=== PATIENT | female | born 1950 | race Caucasian/White ===

== ENCOUNTER 2016-11-09 07:54 | Day surgery (SDC) | payer MEDICARE ==
--- NOTE | 2016-11-08 00:03 | HP ---
HISTORY AND PHYSICAL: DATE OF ADMISSION: 11/09/16 ADMITTING DIAGNOSES: 1. Left hydronephrosis. 2. Left ureteropelvic junction calculus. 3. Left renal calculus. PLANNED PROCEDURE: Left stent insertion (to be followed in the near future by lithotripsy). SURGEON: Dr. Boyce. ADMITTING HISTORY AND PHYSICAL: Robb Kenyon is a 66-year-old lady with a history of recurrent renal calculi. She was recently evaluated for left flank pain and was noted to have left hydronephrosis secondary to a 6-mm calculus at the left ureteropelvic junction. In addition, she has a 9-mm calculus in the left kidney. The plan is for left stent insertion to be followed in the near future by lithotripsy. Her urinalysis when seen on November 07 was suspicious for urinary tract infection and she was started on antibiotics and urine culture is pending at the time of this dictation. PAST MEDICAL HISTORY: Significant for: 1. Renal calculi. 2. Hypertension. 3. Postherpetic neuralgia. MEDICATIONS: On admission: 1. Hydrochlorothiazide 25 mg a day. 2. Atenolol 12.5 mg a day. 3. Lyrica 100 mg 2 tablets daily. 4. Duloxetine 60 mg a day. ALLERGIES: AMPICILLIN (hives), OXCARBAZEPINE (skin rash), CODEINE (vomiting). PHYSICAL EXAMINATION GENERAL: Reveals a pleasant, middle-aged lady. VITAL SIGNS: Blood pressure is 112/78, pulse 70 per minute, temperature 98.5, oxygen saturation 97%. LUNGS: Clear bilaterally. CARDIOVASCULAR: Regular rate and rhythm. S1, S2. ABDOMEN: Soft with mild left flank tenderness. IMPRESSION: A 66-year-old lady with left ureteropelvic junction calculus with mild left hydronephrosis and a possible associated urinary tract infection, who has been started on antibiotics and is now being brought in for left stent insertion to be followed at some point in the near future by lithotripsy. CC: Dr. Margarito Martin; Dr. Boyce * [id number]/[facility] #: [id number] MTDD
[~2016-11-09 07:54] MED LIST: Buffered Lidocaine 1% SYR 3ML* 3 ML/SYR SYRINGE INTRADERM ONE; Famotidine IV* 10 MG/ML 2 ML (20 mg) IV ONE; Famotidine IV* 10 MG/ML 2 ML (20 mg) ONE; Gentamicin ADULT (*) 180 MG in NS 0.9% 100 ML* 100 ML IVPB ONE; Iohexol 180 (CONTRAST) 10 ML SDV IV ONE; cefTRIAXone(*) 2 GM ADDV.VIAL IVPB ONE
[2016-11-09] MEDS ORDERED: cefTRIAXone(*) 2 GM ADDV.VIAL IVPB ONE (07:59)
[2016-11-09] MEDS ORDERED: Famotidine IV* 10 MG/ML 2 ML (20 mg) ONE (07:59)
[2016-11-09] MEDS ORDERED: Midazolam* 1 MG/ML 5 ML VIAL (5 MG) ONE (08:07)
[2016-11-09] MEDS ORDERED: fentaNYL* 50 MCG/ML 2 ML VIAL (100 MCG VIAL) ONE (08:07)
[2016-11-09] MEDS ORDERED: Ondansetron INJ* 2 MG/ML VIAL ONE (08:08)
[2016-11-09] MEDS ORDERED: Propofol* 10 MG/ML 20 ML BTL IV PUSH ONE (08:08)
[2016-11-09] MEDS ORDERED: Lidocaine 2% PF * 5 ML VIAL ONE (08:08)
[2016-11-09] MEDS ORDERED: Ketorolac INJ* 30 MG/ML 1 ML VIAL ONE (08:08)
[2016-11-09] MEDS ORDERED: Acetaminophen TAB* 325 MG PO PRN (08:29)
[2016-11-09] MEDS ORDERED: DiMENhydriNATE IV* 50 MG/ML VIAL IV PUSH PRN (08:29)
[2016-11-09] MEDS ORDERED: Chloroprocaine 2%* 20 ML VIAL ONE (08:45)
--- NOTE | 2016-11-09 09:50 | RAD ---
INDICATION: Left-sided hydronephrosis, left ureteral stent insertion COMPARISONS: KUB dated November 07, 2016 TECHNIQUE: Fluoroscopy was provided for a retrograde pyelogram and stent placement. Total fluoroscopy time is: 10 seconds FINDINGS: Spot images demonstrate contrast within the renal collecting system. A ureteral stent is noted IMPRESSION: FLUOROSCOPY WAS PROVIDED FOR A RETROGRADE PYELOGRAM AND STENT PLACEMENT CPT II Codes: 6045F
[2016-11-09] MEDS ORDERED: Iohexol 180 (CONTRAST) 10 ML SDV IV ONE (09:55)
[2016-11-09 10:15] VITALS: BP 126/77
--- NOTE | 2016-11-10 03:05 | OP ---
DATE OF OPERATION: 11/09/16 - SDS DATE OF : 50 - AGE/SEX: 66 years, female. SURGEON: Dr. Boyce. ANESTHESIA: Spinal. ANESTHESIOLOGIST: Dr. Pozo. PRE-OP DIAGNOSES: 1. Left hydronephrosis. 2. Calculus, left ureteropelvic junction. 3. Urinary tract infection. POST-OP DIAGNOSES: 1. Left hydronephrosis. 2. Calculus, left ureteropelvic junction. 3. Urinary tract infection. OPERATIVE PROCEDURE: Cystoscopy, left retrograde pyelogram, left ureteral calculus manipulation and left stent insertion. COMPLICATIONS: None. STENT USED: 8-Thai stent, left ureter. POSTOPERATIVE CONDITION: Stable. OPERATIVE FINDINGS: Mild stricture at the area of left ureteropelvic junction with mild left hydronephrosis. INDICATIONS: Robb Kenyon is a 66-year-old lady with a history of recurrent left renal calculi. She was recently evaluated for left-sided pain and noted to have a 6 mm calculus at the left ureteropelvic junction with left hydronephrosis and then associated urinary tract infection. She is being brought in for left stent insertion to be followed in near future by lithotripsy. DESCRIPTION OF PROCEDURE: After induction of spinal anesthesia, the patient was placed in dorsal lithotomy position. Sequential compression devices were in place and functioning. Initial cystoscopy revealed a normal-appearing bladder with some mild chronic inflammatory changes noted. Left retrograde pyelogram revealed [id number] fullness on the left collecting system with some narrowing noted at the area of the ureteropelvic junction. The open-ended catheter was advanced and calculus was manipulated proximally. Once this was done, an 8-Thai stent was introduced and positioned under fluoroscopy with good proximal and distal positioning obtained. Urine had been obtained from the left kidney and sent for culture and visibly looked clear. The bladder was emptied. The patient tolerated the procedure satisfactorily and was transferred back to the recovery area in stable condition. CC: Margarito Martin MD; Rufus Boyce MD * [id number]/[facility] #: [id number] MTDD
== END 2016-11-09 10:19 | disposition home or self-care (01) ==
LOC: OR 07:54
PROVIDERS: ATTEND Urology
DX: N13.2 Hydronephrosis with renal and ureteral calculous obstruction (principal); I10 Essential (primary) hypertension; B02.29 Other postherpetic nervous system involvement
CPT/HCPCS: 74420; 87086; C1876; J0696; J1580; J1885; J2250; J2400; J2405; J2704; J3010

== ENCOUNTER → 2016-11-12 11:47 | Day surgery (SDC) | payer MEDICARE ==
[~2016-11-12 11:47] MED LIST changes: -Buffered Lidocaine 1% SYR 3ML* 3 ML/SYR SYRINGE INTRADERM ONE; +Buffered Lidocaine 1% SYRIN* 3 ML/SYR SYRINGE INTRADERM ONE; +Chloroprocaine 2%* 20 ML VIAL ONE; -Gentamicin ADULT (*) 180 MG in NS 0.9% 100 ML* 100 ML IVPB ONE; -Iohexol 180 (CONTRAST) 10 ML SDV IV ONE; +KETAMINE HCL* 50 MG/ML 10 ML VIAL ONE; +Ketorolac INJ* 30 MG/ML 1 ML VIAL ONE; +Lidocaine 2% PF* 10 ML AMP ONE; +Metoclopramide TAB* 10 MG ONE; +Metoclopramide TAB* 10 MG PO ONE; +Midazolam* 1 MG/ML 5 ML VIAL (5 MG) ONE; +Ondansetron INJ* 2 MG/ML VIAL IV PRN; +Ondansetron INJ* 2 MG/ML VIAL ONE; +Propofol* 10 MG/ML 20 ML BTL IV PUSH ONE; +fentaNYL* 50 MCG/ML 2 ML VIAL (100 MCG VIAL) IV PRN; +fentaNYL* 50 MCG/ML 2 ML VIAL (100 MCG VIAL) ONE
--- NOTE | 2016-11-12 13:09 | RAD ---
Indication indication: Lithotripsy. 2 views of the abdomen demonstrates a left ureteral stent in place. Tiny calcifications overlying the lower pole of the left kidney is noted. The calculi appear to BE smaller than on previous exam of November 07, 2016. IMPRESSION: Left ureteral stent in place.
[2016-11-12 17:59] VITALS: BP 117/62
--- NOTE | 2016-11-13 07:58 | OP ---
DATE OF OPERATION: 11/12/16 - [facility] DATE OF : 50 SURGEON: Rufus Boyce MD ANESTHESIOLOGIST: Dr. Perkins. ANESTHESIA: Intravenous sedation. PRE-OP DIAGNOSIS: Left renal calculi. POST-OP DIAGNOSIS: Left renal calculi. OPERATIVE PROCEDURE: Shock wave lithotripsy of left renal calculi. INDICATIONS: Robb Kenyon is a 66-year-old lady with a history of recurrent renal calculi. She had undergone urgent stent insertion for an obstructing calculus at the left ureteropelvic junction and is now being brought in for lithotripsy. COMPLICATIONS: None. POSTOPERATIVE CONDITION: Stable. DESCRIPTION OF PROCEDURE: After induction of intravenous sedation, the patient was placed on the lithotripsy table in supine position. The calculi which were now in the lower pole area of the left kidney were visualized using fluoroscopy. Shock wave lithotripsy was commenced at a rate of 90 shocks per minute. After the initial 300 shocks, there was a brief pause in lithotripsy for several minutes in an effort to minimize any potential trauma to the kidney. Lithotripsy was then resumed and a total of 2200 shocks were administered. The patient tolerated the procedure satisfactorily and was transferred back to the recovery area in stable condition. CC: Margarito Martin MD * [id number]/[facility] #: [id number] MIREYA
== END | disposition home or self-care (01) ==
LOC: OR 11:47
PROVIDERS: ATTEND Urology
DX: N20.0 Calculus of kidney (principal); Z87.442 Personal history of urinary calculi; Z88.0 Allergy status to penicillin; Z88.5 Allergy status to narcotic agent; Z88.8 Allergy status to other drugs, medicaments and biological substances; I10 Essential (primary) hypertension; F32.9 Major depressive disorder, single episode, unspecified; I27.2 Other secondary pulmonary hypertension; M19.90 Unspecified osteoarthritis, unspecified site
CPT/HCPCS: 74000; A9270-GY; J0696; J1580; J1885; J2001; J2250; J2400; J2405; J2704; J3010

== ENCOUNTER 2017-04-02 11:16 | Emergency (ER) | payer MEDICARE ==
[2017-04-02 12:25] VITALS: BP 154/72
--- NOTE | 2017-04-02 12:53 | UC ---
Throat Pain/Nasal Alejandro HPI - HPI Summary HPI Summary: ST with swollen glands, extra sweating starting 5 days ago. Since yesterday has had a dry cough that feels like something is stuck low in her chest. Denies nasal congestion, trouble breathing, or measured fever. Is about to travel to [place] to help her sister who will be getting hip replacement. - History of Current Complaint Chief Complaint: UCGeneralIllness Stated Complaint: SORE THROAT Time Seen by Provider: 04/02/17 12:30 Hx Obtained From: Patient ?: No Onset/Duration: Gradual Onset, Lasting Days Cough: Nonproductive Associated Signs & Symptoms: Negative: Nasal Discharge, Fever, Vomiting, Rash - Allergies/Home Medications Allergies/Adverse Reactions: Allergies Allergy/AdvReac Type Severity Reaction Status Date / Time Ampicillin Allergy Hives Verified 04/02/17 12:26 Codeine Allergy N/V Verified 04/02/17 12:26 Oxcarbazepine Allergy RASH, SKIN Verified 04/02/17 12:26 PEELING CARBAZEPINE Allergy RASH AND Uncoded 04/02/17 12:26 SKIN PEELING Hayfever Allergy Runny Nose Uncoded 04/02/17 12:26 PMH/Surg Hx/FS Hx/Imm Hx Cardiovascular History: Hypertension - Surgical History Surgical History: Yes Surgery Procedure, Year, and Place: KIDNEY STONE REMOVED, 2008, [place]. GALLBLADDER [facility] [place], 1973. CYSTO STENTS, [facility] 03/2009, 04/2009, 12/2011 [facility] [place]. LITHO [facility] - Family History Known Family History: Positive: None - Social History Lives: Alone Alcohol Use: None Substance Use Type: None Smoking Status (MU): Never Smoked Tobacco Review of Systems Constitutional: Negative Skin: Negative Eyes: Negative ENT: Sore Throat Respiratory: Cough Cardiovascular: Negative Gastrointestinal: Negative Genitourinary: Negative Motor: Negative Neurovascular: Negative Musculoskeletal: Negative Neurological: Negative Psychological: Negative All Other Systems Reviewed And Are Negative: Yes Physical Exam Triage Information Reviewed: Yes Appearance: Well-Appearing, No Pain Distress, Well-Nourished Vital Signs: Initial Vital Signs Temp 96.2 F 04/02/17 12:21 Pulse 62 04/02/17 12:21 Resp 18 04/02/17 12:21 BP 154/72 04/02/17 12:21 Pulse Ox 99 04/02/17 12:21 Vital Signs Reviewed: Yes Eye Exam: Normal, Other - PERRL Eyes: Positive: Conjunctiva Clear ENT: Positive: Hearing grossly normal, Pharynx normal, TMs normal. Negative: Tonsillar swelling, Tonsillar exudate Dental Exam: Normal Neck: Positive: Supple, Tenderness @ - over anterior lymph nodes, no palpable swelling noted Respiratory Exam: Normal Respiratory: Positive: Chest non-tender, Lungs clear, Normal breath sounds, No respiratory distress, No accessory muscle use Cardiovascular Exam: Normal Cardiovascular: Positive: RRR, No Murmur Musculoskeletal Exam: Normal Neurological Exam: Normal Neurological: Positive: Alert Psychological Exam: Normal Skin Exam: Normal Throat Pain/Nasal Course/Dx - Differential Dx/Diagnosis Provider Diagnoses: URI, likely viral Discharge - Discharge Plan Condition: Stable Disposition: HOME Patient Education Materials: Cold Symptoms (ED) Referrals: Margarito Martin MD [Primary Care Provider] - Additional Instructions: Remember to cover your cough, wash your hands frequently, and use hand edm operator when entering or leaving your sister's hospital room.
== END 2017-04-02 13:17 | disposition home or self-care (01) ==
LOC: UCEAST 11:16
DX: J06.9 Acute upper respiratory infection, unspecified (principal); I10 Essential (primary) hypertension; Z87.442 Personal history of urinary calculi; Z90.49 Acquired absence of other specified parts of digestive tract; Z88.1 Allergy status to other antibiotic agents; Z88.5 Allergy status to narcotic agent
CPT/HCPCS: 87651; 99211; G0463

== ENCOUNTER 2017-09-03 07:44 | Inpatient (IN) | payer MEDICARE ==
--- NOTE | 2017-08-25 22:41 | HP ---
PREOPERATIVE HISTORY AND PHYSICAL: DATE OF SURGERY/ADMISSION: 09/03/17 DATE OF OFFICE VISIT/ENCOUNTER: 08/21/17 ATTENDING SURGEON: Stacey Porras MD * (DICTATED BY MARIA ESTHER GALAN PROCEDURE: Right total knee replacement. CHIEF COMPLAINT: Right knee pain. HISTORY OF PRESENT ILLNESS: Ms. Kenyon is a 66-year-old female who has had ongoing of worsening right knee pain over several years increased with prolonged ambulation and stair climbing. She has had physical therapy and also received a cortisone injection probably a month ago and was helpful; however, it has not been able to fully alleviate her discomfort and pain is interfering with her activities of daily life. She has consented to proceed with surgical inter-vention at this time in the form of a right total knee replacement. X- rays of the knee had showed advanced osteoarthritis. PAST MEDICAL HISTORY: 1. Postherpetic neuralgia. 2. Morbid obesity. 3. Hypertension. 4. History of asthma. 5. Osteoarthritis. 6. Heart murmur. 7. History of kidney stones. PAST SURGICAL HISTORY: 1. Cholecystectomy. 2. Several percutaneous lithotripsies for kidney stones. 3. Hammertoe surgery. CURRENT MEDICATIONS: 1. Aspirin 325 mg 1 to 2 p.o. p.r.n. headaches. 2. Atenolol 25 mg half tab p.o. every day. 3. Claritin 10 mg daily p.r.n. 4. Cymbalta 30 mg 2 capsules daily. 5. Hydrochlorothiazide 25 mg daily. 6. Ibuprofen 400 mg q.4 to 6 hours p.r.n. 7. Lyrica 50 mg daily p.r.n. 8. Lyrica 100 mg one tab in the evening and one tab in the morning. ALLERGIES: AMOXICILLIN, AMPICILLIN, CARBAMAZEPINE, OXCARBAZEPINE, all of those medications cause hives. CODEINE PHOSPHATE causes nausea and vomiting. The patient also has hay fever. FAMILY MEDICAL HISTORY: Heart disease, hypertension, and breast cancer. SOCIAL HISTORY: The patient is employed. 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 She denies tobacco use and recreational drug use. She does drink alcohol on rare occasions. REVIEW OF SYSTEMS: General: Positive for night sweats. Negative for fevers or chills. No known anesthesia problems. HEENT: Positive for occasional blurred vision. Negative for headache, lightheadedness, or syncopal episodes. Integumentary: Negative for abrasions, lesions, or open wounds. Cardiothoracic : Positive for hypertension. Negative for chest pain, palpitations, or edema. Positive for heart murmur. Pulmonary: Positive for shortness of breath with exertion related to asthma. Negative for chronic cough or COPD. GI: Negative for nausea, vomiting, diarrhea, constipation, or GERD. : Positive for history of UTIs and positive for history of kidney stones. Negative for nocturia, urinary frequency or urgency. Musculoskeletal: Positive for current complaint. Negative for chronic or intermittent back pain or history of fractures. Neurologic: Positive for postherpetic neuralgia. Negative for history of seizure or stroke. Endocrine: Negative for diabetes or thyroid issues. Hematologic: Negative for easy bruising, anemia, excessive bleeding, or history of DVT. Infectious Disease: Negative for history of MRSA, hepatitis C, or HIV. PHYSICAL EXAMINATION GENERAL: Well-developed, well-nourished 66-year-old female in no acute distress. VITAL SIGNS: Height 5 feet 3 inches, weight 236 pounds, blood pressure 180/90, pulse rate 78. HEENT: Normocephalic, atraumatic. Pupils are equal, round and reactive to light and accommodation. Extraocular movements are intact. Throat is clear. NECK: Supple. No palpable lymph nodes. PULMONARY: Lungs are clear to auscultation bilaterally. No wheezes, rales, or rhonchi. CARDIOVASCULAR: Regular rate and rhythm. S1 and S2. A mild systolic ejection murmur noted. No rubs or gallops. No edema. ABDOMEN: Positive bowel sounds, soft and nontender. NEUROLOGIC: Alert and oriented x3. Cranial nerves II through XII are intact. Sensation is intact to light touch. MUSCULOSKELETAL: On exam of her extremities and her knee in particular, skin is intact. She has a mild joint effusion. Range of motion from 5 to 110 degrees of flexion at the knee. 5/5 ankle dorsiflexion and plantar flexion strength. No varus or valgus instabilities of the knee. Full sensation to light touch in all nerve distributions and a 2+ palpable dorsalis pedis pulse. IMAGING STUDIES: X-rays of the right knee show severe arthritis with medial bone- on-bone contact, end-stage arthritis with tricompartmental osteophyte formation, subchondral sclerosis, and joint space narrowing. IMPRESSION: Right knee end-stage osteoarthritis. PLAN: This is a 66-year-old female with end-stage osteoarthritis of the right knee. She has failed conservative treatment and has elected to proceed with a right total knee arthroplasty, which is scheduled for 09/03/[address] Porras discussed the risks and benefits of surgery at today's visit and all of her questions were answered. Postoperatively, she will use Coumadin for DVT prophylaxis, Percocet for pain management and Colace for constipation related to narcotic pain medication use. All of these prescriptions were e-scribed to the patient's pharmacy today. She will follow up with Dr. Porras in 2 weeks after surgery. MARIA ESTHER GALAN [id number]/[facility] #: [id number] MIREYA
[~2017-09-03 07:44] MED LIST changes: -Buffered Lidocaine 1% SYRIN* 3 ML/SYR SYRINGE INTRADERM ONE; -Chloroprocaine 2%* 20 ML VIAL ONE; +Dexamethasone IV* 4 MG/ML 1 ML (4 MG) IV SLOW PU ONE; -Famotidine IV* 10 MG/ML 2 ML (20 mg) ONE; -KETAMINE HCL* 50 MG/ML 10 ML VIAL ONE; -Ketorolac INJ* 30 MG/ML 1 ML VIAL ONE; -Lidocaine 2% PF* 10 ML AMP ONE; -Metoclopramide TAB* 10 MG ONE; -Metoclopramide TAB* 10 MG PO ONE; -Midazolam* 1 MG/ML 5 ML VIAL (5 MG) ONE; -Ondansetron INJ* 2 MG/ML VIAL IV PRN; -Ondansetron INJ* 2 MG/ML VIAL ONE; -Propofol* 10 MG/ML 20 ML BTL IV PUSH ONE; -cefTRIAXone(*) 2 GM ADDV.VIAL IVPB ONE; -fentaNYL* 50 MCG/ML 2 ML VIAL (100 MCG VIAL) IV PRN; -fentaNYL* 50 MCG/ML 2 ML VIAL (100 MCG VIAL) ONE
--- OUTSIDE RECORDS SUMMARY | 2017-09-03 07:53 | XMS REPORT ---
:1950 External Reference #:[id number] Author Organization [employer] Address [address] [address] Phone [phone] Care Team Providers Name Role Phone China Kraft MD Primary Care Physician Unavailable Payers Type Date Identification Numbers Payment Provider Subscriber Health Maintenance Policy Number: Medicare Blue Ppo Robb Muro [facility] [place] (O) [id number] Group Number: [id number] [address] PayID: [id number] EDDIE Kimball [address] Medigap Part B Effective: Policy Number: BS Cara Robb Santiago Mcpsuetevin 09/02/2013 [id number] Expires: 09/01/2015 PayID: [id number] [address] [id number] EDDIE Kimball [id number] Medigap Part B Effective: Policy Number: BS Cara Robb Santiago Meriss[employer] 12/01/2010 [id number] Expires: 09/01/2013 PayID: [id number] [place] [id number] EDDIE Kimball [id number] Problems Date Description Provider Status Onset: 11/23/2011 Essential hypertension Citlalli Gaxiola M.D. Onset: 11/23/2011 Mitral valve disorder Citlalli Gaxiola M.D. Onset: 11/23/2011 Tricuspid valve disorder, Citlalli Gaxiola non-rheumatic M.DSaqib Onset: 09/08/2012 Electrocardiogram abnormal Citlalli Gaxiola M.D. Onset: 09/08/2012 Chest pain Ashley Phillip, Active M.D. 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 Onset: 09/11/2013 Heart murmur [facility] Active Onset: 01/26/2016 Post-herpetic trigeminal neuralgia Alice Maxwell M.D. Active Onset: 07/03/2017 Localized, primary osteoarthritis Stacey Porras M.D. Active of the pelvic region and thigh Onset: 07/03/2017 Localized, primary osteoarthritis Stacey Porras M.D. Active Family History Date Family Member(s) Problem(s) Comments General Heart Disease General Hypertension General Cancer Father due to OR x3 () - age 51 yr Mother due to Natural Causes () Paternal Grandfather due to influenza () Paternal Grandmother due to Influenza () Maternal Grandfather due to Lung disease () Maternal Grandmother due to drowned () Social History Type Date Description Comments Marital Status Lives With Spouse Occupation [employer] Cigarette Use Never Smoked Cigarettes ETOH Use Rarely consumes alcohol Smoking Patient has never smoked Recreational Drug Use Denies Drug Use Daily Caffeine Consumes on average 2 cups of and ice tea hot tea per day Enjoy Exercising Enjoys exercising Walking, water aerobics Exercise Type/Frequency Walks daily 89292 steps per day Exercise Type/Frequency Swims 2 times a week Aqua marlo Allergies, Adverse Reactions, Alerts Date Description Reaction Status Severity Comments 04/12/2009 Ampicillin active hives 04/12/2009 Codeine Phosphate active N/V 04/12/2009 Hay Fever active 04/12/2009 Oxcarbazepine active rash 04/12/2009 Carbamazepine active rash 07/03/2017 Amoxicillin active Medications Medication Date Status Form Strength Qnty SIG Indications Ordering Provider Lyrica 12/11 Active Capsules 50mg 30cap 1 tab by Xin s mouth Cowdery, daily as M.D. needed Hydrochlorothiazid 08/02 Active Tablets 25mg 90tab Take One I10 Kathitasam s Tablet By S. Mouth Kenji, Every Day M.D. Cymbalta 01/[address] 30mg 60cap Take Two B02.22 Alice Part s Capsules Stackman, By Mouth M.D. Every Day as Directed Atenolol Active Tablets 25mg 30tab 1/2 po Unknown / s qd Lyrica Active Capsules 100mg 60cap 1 by Xin / s mouth Cowdery, daily in M.D. the evening and one in the morning Ibuprofen Active Tablets 400mg by mouth Unknown /0000 every 4 to 6 hours as needed Claritin Active Capsules 10mg 1 by Unknown /0000 mouth every day as needed Aspirin Active 325mg 1-2 po Unknown / prn headache (rare use) Lyrica 08/30 Hx Capsules 100mg 60cap one twice Alice Copeland s a day Hans, - M.D. 10/29 Lyrica 08/28 Hx Capsules 50mg 60cap 1 by Alice Saqib s mouth per Hans, - day as M.D. 08/30 needed addition to 100mg tabs Hydrochlorothiazid 07/29 Hx Tablets 25mg 90tab 1 po qd Other s Ordering - Provider 01/24 Cozaar 12/22 Hx Tablets 50mg 60tab 1 pill by Shayna /2011 s mouth Red, - twice per D.O. Lisinopril 11/17 Hx Tablets 5mg 30tab [facility]. Norvasc 07/11 Hx Tablets 10mg 90tab 1 po qd Qutayb s S. - Maghaydah, 11/17 M.D. Zyrtec 04/12 Hx Chewtabs 10mg 30uni 1 tab po Qutayb ts qd S. - Maghaydah, 07/06 M.D. Norvasc 04/12 Hx Tablets 5mg 30tab 1 po qd Qutayb s S. - Maghaydah, 07/11 M.D. Lyrica Hx Capsules 150mg 60cap 1 po bid Unknown /0000 s and 1 qhs - 11/17 Multi Vitamin Hx Tablets 1 po qd Unknown /0000 - 08/01 Fish Oil 00/ Hx Capsules 1000mg 1 po qd Unknown /0000 - Lyrica Hx Capsules 150mg 1 po Unknown /0000 daily in - the 08/30 Cipro Hx Tablets 500mg 20tab 1 po qd x Unknown /0000 s 3 days - 12/10 Vitamin B6 / Hx Tablets 250mg 2 po qd Unknown / - 08/21 Magnesium / Hx 1 spray Unknown / qd on - abdomen 08/21 Aspir-81 / Hx Tablets DR 81mg 1 by Unknown /0000 mouth - every day 01/24 Ciprofloxacin HCL Hx Tablets 500mg Husseini, /0000 MD Carlos - 07/02 [address]ox[address] H[address] Hx Caps [address] 30mg 2 by Unknown /0000 Part mouth - every day 07/07 Pneumococcal,Unspe Active Injection Unknown cified Influenza Virus Active Injection Alice Copeland Vaccine /0000 Kia Maxwell Medications Administered in Office Medication Date Status Form Strength Qnty SIG Indications Ordering Provider Depomedrol Administered Injection Stacey 40MG Waqas Porras M.D. Depomedrol Administered Injection Stacey 40MG Waqas Porras M.D. Vital Signs Date Vital Result Comment 08/21/2017 Height 63 inches 5'3" Weight 236.00 lb Heart Rate 78 /min BP Systolic Sitting 180 mmHg BP Diastolic Sitting 90 mmHg Body Temperature 98.5 F BMI (Body Mass Index) 41.8 kg/m2 07/23/2017 Height 63 inches 5'3" Weight 228.00 lb Heart Rate 72 /min BP Systolic 138 mmHg BP Diastolic 82 mmHg Respiratory Rate 16 /min Body Temperature 98.5 F BMI (Body Mass Index) 40.4 kg/m2 07/08/2017 Height 63 inches 5'3" Weight 228.00 lb with shoes Heart Rate 58 /min BP Systolic Sitting 166 mmHg LA lrg cuff BP Diastolic Sitting 104 mmHg LA lrg cuff BMI (Body Mass Index) 40.4 kg/m2 Ejection Fraction 60%-65% echo 09/16/12 07/03/2017 Height 63 inches 5'3" Weight 225.00 lb Heart Rate 61 /min BP Systolic 147 mmHg BP Diastolic 73 mmHg BMI (Body Mass Index) 39.9 kg/m2 05/17/2017 Height 63 inches 5'3" Weight 227.00 lb w/ shoes Heart Rate 66 /min reg BP Systolic Sitting 150 mmHg Rue, lg cuff BP Diastolic Sitting 94 mmHg Rue, lg cuff Respiratory Rate 16 /min BMI (Body Mass Index) 40.2 kg/m2 Ejection Fraction 60-65% as of 09/2012 echo 03/28/2017 Height 63 inches 5'3" Weight 230.00 lb Heart Rate 68 /min BP Systolic 156 mmHg BP Diastolic 84 mmHg Respiratory Rate 16 /min Pain Level 2 BMI (Body Mass Index) 40.7 kg/m2 11/27/2016 Height 63 inches 5'3" Weight 217.00 lb Heart Rate 66 /min BP Systolic 142 mmHg BP Diastolic 86 mmHg Respiratory Rate 18 /min Body Temperature 98.4 F BMI (Body Mass Index) 38.4 kg/m2 08/16/2016 Heart Rate 61 /min BP Systolic 132 mmHg LA, large BP Diastolic 80 mmHg LA, large BP Systolic Sitting 152 mmHg LA, home unit BP Diastolic Sitting 78 mmHg LA, home unit 08/02/2016 Height 64 inches 5'4" Weight 222.00 lb without shoes Heart Rate 76 /min BP Systolic Sitting 160 mmHg Rue reg cuff BP Diastolic Sitting 86 mmHg Rue reg cuff BP Systolic Standing 156 mmHg Rue reg cuff BP Diastolic Standing 80 mmHg Rue reg cuff Respiratory Rate 17 /min BMI (Body Mass Index) 38.1 kg/m2 07/12/2016 Height 64 inches 5'4" Weight 218.00 lb Heart Rate 56 /min BP Systolic Sitting 132 mmHg BP Diastolic Sitting 86 mmHg Respiratory Rate 14 /min BMI (Body Mass Index) 37.4 kg/m2 01/26/2016 Height 64 inches 5'4" Weight 220.00 lb Heart Rate 56 /min BP Systolic Sitting 108 mmHg BP Diastolic Sitting 70 mmHg Respiratory Rate 14 /min BMI (Body Mass Index) 37.8 kg/m2 11/01/2015 Height 64 inches 5'4" Weight 221.00 lb w/o shoes Heart Rate 60 /min BP Systolic Sitting 118 mmHg LA lg cuff BP Diastolic Sitting 90 mmHg LA lg cuff BMI (Body Mass Index) 37.9 kg/m2 Ejection Fraction 60-65 echo 09/16/12 03/03/2015 Height 64 inches 5'4" Weight 237.00 lb Heart Rate 70 /min BP Systolic 146 mmHg LA large BP Diastolic 78 mmHg LA large BMI (Body Mass Index) 40.7 kg/m2 Ejection Fraction 60-65% 09/16/12 ECHO 07/08/2014 Height 64 inches 5'4" Weight 240.25 lb Heart Rate 64 /min BP Systolic Sitting 144 mmHg LA lg cuff BP Diastolic Sitting 82 mmHg LA lg cuff Respiratory Rate 16 /min BMI (Body Mass Index) 41.2 kg/m2 08/21/2013 Height 64 inches 5'4" Weight 228.00 lb Heart Rate 68 /min BP Systolic Sitting 130 mmHg BP Diastolic Sitting 82 mmHg Respiratory Rate 16 /min BMI (Body Mass Index) 39.1 kg/m2 11/28/2012 Height 64 inches 5'4" Weight 247.00 lb Heart Rate 58 /min BP Systolic 118 mmHg BP Diastolic 68 mmHg BMI (Body Mass Index) 42.4 kg/m2 01/02/2012 Height 64 inches 5'4" Weight 260.00 lb Heart Rate 70 /min BP Systolic 128 mmHg BP Diastolic 70 mmHg BP Systolic Sitting 108 mmHg pulse 80 BP Diastolic Sitting 62 mmHg pulse 80 BP Systolic Standing 118 mmHg pulse 84 BP Diastolic Standing 70 mmHg pulse 84 BP Systolic Lying Down 116 mmHg pulse 64 BP Diastolic Lying Down 60 mmHg pulse 64 BMI (Body Mass Index) 44.6 kg/m2 12/11/2011 Height 64 inches 5'4" Weight 259.75 lb Heart Rate 65 /min BP Systolic Sitting 160 mmHg home unit: 161/94 BP Diastolic Sitting 80 mmHg home unit: 161/94 BMI (Body Mass Index) 44.6 kg/m2 11/23/2011 Height 64 inches 5'4" Weight 261.00 lb Heart Rate 49 /min BP Systolic Sitting 152 mmHg BP Diastolic Sitting 90 mmHg BMI (Body Mass Index) 44.8 kg/m2 11/17/2010 Height 64 inches 5'4" Weight 265.00 lb Heart Rate 60 /min BP Systolic Sitting 164 mmHg L BP Diastolic Sitting 80 mmHg L BMI (Body Mass Index) 45.5 kg/m2 08/05/2009 Height 64 inches 5'4" Weight 259.00 lb Heart Rate 60 /min BP Systolic Sitting 138 mmHg BP Diastolic Sitting 82 mmHg BMI (Body Mass Index) 44.5 kg/m2 07/06/2009 Height 64 inches 5'4" Weight 257.00 lb Heart Rate 60 /min BP Systolic Sitting 158 mmHg L BP Diastolic Sitting 70 mmHg L BMI (Body Mass Index) 44.1 kg/m2 04/12/2009 Height 64 inches 5'4" Weight 263.00 lb Heart Rate 53 /min BP Systolic Sitting 130 mmHg BP Diastolic Sitting 80 mmHg BP Systolic Standing 140 mmHg BP Diastolic Standing 90 mmHg BP Systolic Lying Down 130 mmHg BP Diastolic Lying Down 80 mmHg Respiratory Rate 16 /min BMI (Body Mass Index) 45.1 kg/m2 Results Test Date Test Result H/L Range Note Basic Metabolic Panel 12/31/2011 Sodium 136 mmol/L 135-145 Potassium 4.5 mmol/L 3.5-5.0 Chloride 106 mmol/L 101-111 Co2 (Carbon Dioxide) 24.0 mmol/L 22-32 Anion Gap 6.0 mmol/L 2-11 1 Glucose 95 mg/dL 70-100 BUN 23 mg/dL 6-24 Creatinine 0.8 mg/dL 0.50-1.40 One Over Creatinine 1.25 BUN/Creatinine Ratio 28.8 High 8-20 Calcium 8.8 mg/dL 8.1-9.9 eGFR Non- 72.9 > 60 eGFR 93.8 > 60 2 1 Anion gap measurement may be of limited value in the presence of any alkalosis, especially in a combined acid base disorder. . 2 Because ethnic data is not always readily available, this report includes an eGFR for both -Americans and non- Americans. The National Kidney Disease Education Program (NKDEP) does not endorse the use of the MDRD equation for patients that are not between the ages of 18 and 70, are , have extremes of body size, muscle mass, or nutritional status, or are non- or non-. According to the National Kidney Foundation, irrespective of diagnosis, the stage of the disease is based on the level of kidney function: Stage Description GFR(mL/min/1.73 m(2)) 1 Kidney damage with normal or decreased GFR 90 2 Kidney damage with mild decrease in GFR 60-89 3 Moderate decrease in GFR 30-59 4 Severe decrease in GFR 15-29 5 Kidney failure <15 (or dialysis) Procedures Date CPT Code Description Status 08/09/2017 72505 ECHO Transthoracic, Real-Time 2D With Doppler And Color Completed Flow 08/09/2017 34709 ECHO Transthoracic, Real-Time 2D With Doppler And Color Completed Flow 07/12/2017 Mammogram Completed 07/03/201743707 Inject/Drain Joint/Bursa Major Completed 07/03/201747099 Inject/Drain Joint/Bursa Major Completed 05/17/2017 42135 EKG Tracing & Interpretation Completed 08/02/2016 94847 EKG Tracing & Interpretation Completed 07/05/2016 Mammogram Completed 11/15/2015 Mammogram Completed 11/01/2015 08797 EKG Tracing & Interpretation Completed 05/16/2015 Mammogram Completed 03/03/2015 61763 EKG Tracing & Interpretation Completed 11/16/2014 Mammogram Completed 11/12/2014 Mammogram Completed 10/21/2014 Mammogram Completed 07/08/2014 97685 EKG Tracing & Interpretation Completed 09/11/2013 93566 ECHO Transthoracic, Real-Time 2D With Doppler And Color Completed Flow 08/21/2013 44990 EKG Tracing & Interpretation Completed 08/14/2013 03581 ECHO Transthoracic, Real-Time 2D With Doppler And Color Completed Flow 11/28/2012 05165 EKG Tracing & Interpretation Completed 09/16/2012 91326 ECHO Transthoracic, Real-Time 2D With Doppler And Color Completed Flow 09/08/2012 73863 ECHO Stress Test Incl Perf Contiuous ekg Monitoring Completed W/Phys Superv 09/08/2012 49823 ECHO Transthoracic, Real-Time 2D With Doppler And Color Completed Flow 11/23/2011 36495 EKG Tracing & Interpretation Completed 10/25/2011 26138 ECHO Transthoracic, Real-Time 2D With Doppler And Color Completed Flow 11/17/2010 94410 EKG Tracing & Interpretation Completed 06/05/2010 11326 ECHO Transthoracic, Real-Time 2D With Doppler And Color Completed Flow 06/07/2009 77505 ECHO Stress Test Incl Perf Contiuous ekg Monitoring Completed W/Phys Superv 06/07/2009 33715 ECHO Stress Test Incl Perf Contiuous ekg Monitoring Completed W/Phys Superv 05/16/2009 76726 ECHO Transthoracic, Real-Time 2D With Doppler And Color Completed Flow 04/12/2009 36611 EKG Tracing & Interpretation Completed 03/08/2009 26863 EKG, Interpretation Only Completed 09/26/2005 36720 Color Doppler Completed 09/26/2005 63599 Pulse Doppler & Continuous Wave Completed 09/26/2005 32240 Echocardiogram Completed Encounters Type Date Location Provider CPT E/M Dx Office Visit 07/23/2017 [facility] [place] [address] N64.59 10:00a [employer] Office Visit 07/08/2017 [facility] Qutaybeh S. [address]5218 I10 11:40a Kia Phillip I34.0 I36.1 Office Visit 05/17/2017 2:00p [facility] Qutaybeh S. haydah, 32279 I10 Kia I34.0 I36.1 I45.10 Office Visit 03/28/2017 3:15p [facility] Alice Maxwell, 76405 B02.22 Services Of Tube Trailer Filler M.D. Office Visit 11/27/2016 10:00a [facility] [place] [address] N64.59 Of [employer] Office Visit 08/16/2016 9:30a [facility] Nurse Visit 43618 I10 Office Visit 08/02/2016 4:20p [facility] Qutaybroslyn S. 77970 I34.0 Philly Phillip M.D. I45.10 I10 I36.1 E66.9 Office Visit 07/12/2016 9:45a [facility] Alice Maxwell, 61978 B02.22 Services Of Philly M.DSaqib Office Visit 01/26/2016 9:45a [facility] Alice Maxwell, 60418 B02.22 Services Of [employer]iller M.D. Office Visit 11/01/2015 1:40p [facility] Qutaybeh S. 87421 I34.0 Kia Phillip I45.2 I10 R94.31 Office Visit 03/03/2015 3:40p [facility] Qutaybeh S. Maghaydah, 24194 424.0 M.DSaqib 426.51 401.9 794.31 Office Visit 07/08/2014 2:40p [facility] Qutaybeh S. haydah, 43494 424.0 M.DSaqib 426.51 401.9 794.31 Office Visit 08/21/2013 10:20a [facility] Qutaybeh S. Kenji, 55372 401.9 M.D. 794.31 424.0 424.2 426.51 785.2 Office Visit 11/28/2012 9:40a [facility] Kathitaybroslyn S. Clementydah, 77303 401.9 M.D. 794.31 424.0 424.2 426.51 Office Visit 09/08/2012 3:30p [facility] Kathitaybroslyn S. Deneenah, 24229 401.9 M.D. 794.31 786.50 Office Visit 01/02/2012 1:30p [facility] Xin Mcdermott, N.P. 54336 401.9 Office Visit 12/11/2011 10:00a [facility] Xin Baldemar, N.P. 51881 401.9 Office Visit 11/23/2011 10:00a [facility] Ashley S. Kenji, 16452 401.9 M.D. 424.0 794.31 424.2 Office Visit 12/22/2010 8:15a [facility] [address] 401.9 Office Visit 11/17/2010 3:40p [facility] Kathitaybroslyn S. Clementydah, 70539 401.9 M.D. 424.0 794.31 Office Visit 08/05/2009 10:30a [facility] [place] [address] Office Visit 07/06/2009 9:20a [facility] Kathitaybroslyn S. Kenji, 05041 401.9 M.D. 424.0 424.2 Office Visit 04/12/2009 2:20p [facility] Qutayb S. Kenji, 27201 401.9 M.D. 785.2 424.0 424.2 780.4 V72.81 794.31 Plan of Care Future Appointment(s):09/18/2017 10:45 am - Stacey Porras M.D. at [facility]09/03/2017 9:30 am - Stacey Porras M.D. at [facility]04/01/2018 10:45 am - Alice Maxwell M.D. at [facility]08/21/2017 - Stacey Porras M.D.M17.0 Bilateral primary osteoarthritis of kneeFollow up:Follow up: 2 weeks post o pM25.561 Pain in right knee
[2017-09-03] MEDS ORDERED: Dexamethasone IV* 4 MG/ML 1 ML (4 MG) ONE (08:00)
[2017-09-03] MEDS ORDERED: Clindamycin 900 MG IVPREMIX(* 900 MG/50 ML SDV IV ONE (08:01)
[2017-09-03] MEDS ORDERED: Famotidine IV* 10 MG/ML 2 ML (20 mg) ONE (08:01)
[2017-09-03] MEDS ORDERED: Buffered Lidocaine 0.9% SYRIN* 5 ML/SYR SYRINGE ONE (08:01)
[2017-09-03] MEDS: Buffered Lidocaine 0.9% SYRIN* 5 ML/SYR SYRINGE INTRADERM ONE ×2 (08:29→19:29)
[2017-09-03] MEDS ORDERED: KETAMINE HCL* 50 MG/ML 10 ML VIAL ONE (08:57)
[2017-09-03] MEDS ORDERED: Morphine PF AMP (0.5MG/ML)* 5 MG/10 ML AMP ONE (08:57)
[2017-09-03] MEDS ORDERED: Midazolam* 1 MG/ML 10 ML VIAL (10 MG) ONE (08:57)
[2017-09-03] MEDS ORDERED: Ondansetron INJ* 2 MG/ML VIAL IV PRN (10:16)
[2017-09-03] MEDS ORDERED: Nalbuphine* 20 MG/ML 1 ML VIAL IV PRN ×2 (10:16)
[2017-09-03] MEDS ORDERED: oxyCODONE/Acetamin 5/325 MG* TAB PO PRN (10:16)
[2017-09-03] MEDS ORDERED: DiMENhydriNATE IV* 50 MG/ML VIAL IV PUSH PRN (10:16)
[2017-09-03] MEDS ORDERED: Naloxone* 0.4 MG/ML 1 ML VIAL IV PRN (10:16)
[2017-09-03] MEDS ORDERED: Scopolamine 1.5 mg* PATCH TRANSDERM SCH (11:00)
[2017-09-03] MEDS ORDERED: Acetaminophen TAB* 325 MG PO PRN (11:32)
[2017-09-03] MEDS ORDERED: Bisacodyl SUPP* 10 MG SUPP PR PRN (11:32)
[2017-09-03] MEDS ORDERED: Polyethylene Glycol 3350* 17 GM PACKET PO PRN (11:32)
[2017-09-03] MEDS ORDERED: Cyclobenzaprine TAB* 10 MG PO PRN (11:38)
--- NOTE | 2017-09-03 13:12 | RAD ---
Indication: Right knee replacement. 2 views of the right knee demonstrates bipolar right knee arthroplasty in satisfactory position. IMPRESSION: Right knee arthroplasty in satisfactory position.
[2017-09-03] MEDS: Ropivacaine* 300 MG in NS 0.9% 250 ML* 240 ML EPIDURAL SCH (17:16)
[2017-09-03] MEDS: Clindamycin 600 MG IVPREMIX(* 600 MG/50 ML SDV IV SCH (17:45)
[2017-09-03] MEDS ORDERED: Warfarin TAB(*) 6 MG PO ONE (18:00)
[2017-09-03] MEDS: oxyCODONE/Acetamin 5/325 MG* TAB PO PRN (21:39)
[2017-09-03] MEDS: Docusate CAP* 100 MG PO SCH (21:39)
[2017-09-04] MEDS: oxyCODONE/Acetamin 5/325 MG* TAB PO PRN ×5 (01:23→22:23)
[2017-09-04] MEDS: Clindamycin 600 MG IVPREMIX(* 600 MG/50 ML SDV IV SCH ×2 (02:35→10:40)
--- NOTE | 2017-09-04 04:24 | OP ---
OPERATIVE REPORT: DATE OF OPERATION: 09/03/17 DATE OF : 50 ATTENDING SURGEON: Stacey Porras MD ORGANIC SEARCH LEAD: MARIA ESTHER Calvillo Mr. Miguel did help throughout the procedure with preparation of the leg, wound retraction, manipulat ion of the knee, and wound closure. ANESTHESIOLOGIST: Dr. Chapa. ANESTHESIA: Spinal. PRE-OP DIAGNOSIS: Severe end-stage degenerative osteoarthritis of the right knee joint. POST-OP DIAGNOSIS: Severe end-stage degenerative osteoarthritis of the right knee joint. OPERATIVE PROCEDURE: Right total knee arthroplasty. TOURNIQUET: 63 minutes. ESTIMATED BLOOD LOSS: 200 cc. DRAIN: Medium Hemovac drain. COMPLICATIONS: None. SPECIMEN: Bone and cartilage of the right knee joint sent to Pathology. HARDWARE USED: This is cemented [employer]ona [employer] Nephew total knee arthroplasty hardware. Two packages of S implex bone cement were used. For the femur, a size 5 right posterior stabilized Legion Oxinium femo ral component with a tibia size 3 right tibial baseplate Rosa II. For the insert, a 9-mm posterio r stabilized articular insert, size 3-4 and for the patella, a 32mm 3-peg all poly patella. BRIEF HISTORY/INDICATION: Ms. Kenyon is a 66-year-old female with years of increasingly severe r ight knee pain. Radiographs showed severe end-stage arthritis with wear of the medial tibial plateau due to chronic degeneration. She failed conservative treatment with anti-inflammatories, pain medic ation, intra-articular injection, and physical therapy. She failed to lose weight and wished to proc eed with right total knee arthroplasty due to continued pain and decreased quality of life. Informed consent was obtained from the patient. She understood the risks of surgery, included but we re not limited to bleeding, infection, damage to nearby structures, continued pain, need for further surgery, intraoperative fracture, nerve palsy, hardware failure or loosening, knee stiffness, loss of motion, stroke, heart attack, blood clot, and . She wished to proceed. INTRAOPERATIVE FINDINGS: Intraoperatively, the patient was noted to have severe wear of the medial t ibial plateau due to chronic degenerative osteoarthritis. She had extensive osteophyte formation, mendoza bchondral sclerosis and complete loss of cartilage in all 3 compartments. Preoperatively, the patien t had 15 degrees of flexion contracture. DESCRIPTION OF PROCEDURE: Ms. Kenyon was identified in the preanesthesia unit. Her right lower e xtremity was marked as the correct operative side. Informed consent was signed and placed in the [facility] rt. The patient was taken to the operating room and placed under spinal anesthesia. A Alonzo cathete r was placed. Tourniquet was placed on the right thigh. Right lower extremity was prepped and drape d in the usual sterile fashion. Preop time-out was made to correctly identify the patient's side and site. Appropriate perioperative antibiotics were given within one hour of incision. Tourniquet was inflated and total tourniquet time for this procedure was 63 minutes. A 14-cm midline incision was made with a 10 blade and carried down through the subcutaneous fat, which was at least 6 cm thick. Morbid obesity did add time and complexity to this case. A new 10-blade was used to miguel e a standard medial parapatellar arthrotomy. The patella was subluxed laterally and was noted to hav e extreme wear. Electrocautery was used to subperiosteally elevate soft tissue off the superomedial tibia. Medial osteophyte was carefully removed with a rongeur. The knee was flexed up. ACL was not present. The anterior horn of the lateral meniscus was released. A drill was used to enter the dis kendra femur. Intramedullary distal femoral cutting guide was placed and the distal 9 mm cut was made wi th an oscillating saw. The external rotation guide was pinned on the distal femur. Distal femur was sized to a size 5. Size 5 multi-cutting jig was placed on the distal femur. Oscillating saw was us ed to make the appropriate 4 chamfer cuts. The PCL was completely released. The tibia was subluxed a nteriorly. The extramedullary proximal tibial cutting guide was pinned on the proximal tibia. Oscill ating saw was used to make a proximal tibial cut perpendicular to the mechanical axis of the tibia. Medial tibial plateau was noted to have sclerosis with chronic wear. The knee was brought out into f ull extension. There was good medial and lateral ligamentous balancing. The knee was in full extens ion. Flexion and extension gaps were well balanced. The knee was flexed up. Lamina grant specialist was placed both medially and laterally. Any remaining menisc us was carefully removed using electrocautery. Posterior osteophytes were removed using a curved ost eotome. Tibial tray and drop ilsa once again confirm satisfactory proximal tibial cut. A size 5 right femoral trial was impacted on to the distal femur and had good fit. The box for the po sterior stabilized implant was prepared using a reamer and box- cut osteotome. A size 3 tibial tray with a 9-mm insert trial was placed and the knee was taken through a range of motion. The knee had f ull extension to 120 degrees of flexion. Flexion was limited by body habitus. Patellofemoral tracki ng was satisfactory. The knee was brought out into extension. The patella was everted. The lateral patellar facet had extreme wear. Oscillating saw was used to remove the 8 mm of patellar bone and c artilage. This was largely removed from the medial patellar facet. Patella was sized to size 32. T hree peg holes were drilled through the size 32 guide. A trial 32 patella was placed and the knee wa s taken through a range of motion. There was satisfactory patellofemoral tracking. All trials were carefully removed. The tibia was subluxed anteriorly and sized to a size 3. Proximal tibia was prep ared using a size 3 keel punch. All bony cut surfaces were copiously irrigated with sterile saline a nd dried. Final implants were cemented into place starting with the tibia, followed by the femur and last the patella. A 9-mm insert trial was placed while the knee was brought out into full extension . The cement was allowed to fully cure and the tourniquet was turned down at 63 minutes. The knee w as copiously irrigated with sterile saline. Once the cement had fully cured, the insert trial was removed. Any excess cement was removed from ar ound the implant capsule. Electrocautery was used to obtain meticulous hemostasis. Final insert cho sen was a 9-mm posterior stabilized articular insert size 3-4. This was locked into position on the tibial tray without difficulty. Stability of the insert was checked and rechecked and noted to be st able. The knee was copiously irrigated with sterile saline. Extensor mechanism was closed over a medium He movac drain using an interrupted #1 Vicryls. The rest of the incision was closed in a layered fashio n using 0 and 2-0 Vicryls. Skin was closed using running 3-0 nylon suture. Sterile Xeroform, 4x4s, and Webril were used to cover the incision. Aleksandar wrap and cold packs were placed over this. The roxana ent's anesthesia was reversed without difficulty. She was taken to the PACU in stable condition. In tended weightbearing will be weightbearing as tolerated. Intended DVT prophylaxis will be Coumadin wi th a Lovenox bridge. [id number]/[facility] #: [id number]
[2017-09-04] MEDS ORDERED: oxyCODONE/Acetamin 5/325 MG* TAB PO PRN (06:00)
[2017-09-04] MEDS ORDERED: Morphine INJ* 2 MG/ML 1 ML SYRINGE (TWO MG - NEW SYRINGE VERSION) IV PRN (06:00)
[2017-09-04] MEDS ORDERED: diPHENhydraMINE IV* 50 MG/ML 1 ml VIAL (BENADRYL) IV PRN (06:00)
[2017-09-04] MEDS ORDERED: Ondansetron TAB* 4 MG PO PRN (06:00)
[2017-09-04] MEDS ORDERED: Ondansetron INJ* 2 MG/ML VIAL IV PRN (06:00)
[2017-09-04] MEDS ORDERED: Pregabalin CAP(*) 50 MG PO PRN (06:00)
[2017-09-04] MEDS: DULoxetine DR CAP* 60 MG CAP.DR PO SCH (07:22)
[2017-09-04] MEDS: Pregabalin CAP(*) 100 MG PO SCH ×2 (07:22→22:21)
--- NOTE | 2017-09-04 07:31 | PN ---
Progress Note - Progress Note Date of Service: 09/04/17 SOAP: Subjective: Pt. is alert, c/o moderate pain r knee. Objective: RLE - drain removed, tip intact, 400 cc ss drainage. calf soft, distally +df/pf , full sens lt, 2+ dp pulse. Vital Signs: Temp Pulse Resp BP Pulse Ox 98.4 F 56 18 110/44 94 09/04/17 03:24 09/04/17 03:24 09/04/17 07:22 09/04/17 03:24 09/04/17 03:24 Laboratory Results - last 24 hr 09/03/17 08:42 Hepatitis C Antibody Nonreactive Assessment: 66 yo F pod 1 s/p RTKA Plan: wbat rle pt/ot labs pending lovenox and coumadin today
[2017-09-04] MEDS: Hydrochlorothiazide TAB* 25 MG PO SCH (08:46)
[2017-09-04] MEDS: Atenolol TAB* 25 MG PO SCH (08:46)
[2017-09-04] MEDS: Docusate CAP* 100 MG PO SCH ×2 (08:47→22:23)
[2017-09-04 08:57] LABS: Hematocrit 31 % (35-47); Hemoglobin 10.5 g/dl (12.0-16.0); Mean Platelet Volume 8 um3 (7.4-10.4); Platelet Count 207 10^3/ul (150-450)
[2017-09-04 09:06] LABS: INR 1.1 (0.77-1.02)
[2017-09-04] MEDS: oxyCODONE TAB* 5 MG TAB PO PRN ×2 (10:43→15:00)
[2017-09-04] MEDS: Ropivacaine* 300 MG in NS 0.9% 250 ML* 240 ML EPIDURAL SCH (10:45)
[2017-09-04] MEDS: Enoxaparin(*) 30 MG/0.3 ML SYR SUBCUT SCH (12:05)
[2017-09-04 14:29] LABS: EGFR Non-African American 79.8 (>60)
[2017-09-04] MEDS ORDERED: Warfarin TAB(*) 4 MG PO ONE (17:00)
[2017-09-04] MEDS: Magnesium Hydroxide LIQ* 30 ML UDC PO PRN (18:01)
[2017-09-05] MEDS: oxyCODONE TAB* 5 MG TAB PO PRN ×2 (01:11→11:44)
[2017-09-05 05:27] LABS: INR 1.27 (0.77-1.02)
[2017-09-05 05:32] LABS: Hematocrit 30 % (35-47); Hemoglobin 9.9 g/dl (12.0-16.0); Mean Platelet Volume 8 um3 (7.4-10.4); Platelet Count 165 10^3/ul (150-450)
[2017-09-05] MEDS: Pregabalin CAP(*) 100 MG PO SCH (08:03)
[2017-09-05] MEDS: DULoxetine DR CAP* 60 MG CAP.DR PO SCH (08:03)
[2017-09-05] MEDS: oxyCODONE/Acetamin 5/325 MG* TAB PO PRN (08:46)
[2017-09-05] MEDS: Docusate CAP* 100 MG PO SCH (08:46)
[2017-09-05] MEDS: Atenolol TAB* 25 MG PO SCH (08:46)
[2017-09-05] MEDS: Hydrochlorothiazide TAB* 25 MG PO SCH (08:46)
[2017-09-05] MEDS: Magnesium Hydroxide LIQ* 30 ML UDC PO PRN (08:47)
[2017-09-05 11:33] VITALS: BP 166/60
[2017-09-05] MEDS: Enoxaparin(*) 30 MG/0.3 ML SYR SUBCUT SCH (11:40)
--- NOTE | 2017-09-05 14:37 | PN ---
Progress Note - Progress Note Date of Service: 09/05/17 SOAP: Subjective: []Patient seen at bedside. She feels well and desires DC. No CP, SOB, dizziness. Op site pain is well controlled. Objective: []General: NAD, calm and cooperative RLE: Dressing changed by Dr Porras this morning without complication. DF/PF intact. DP 2+ BL LE: calves supple and nontender without erythema, edema or palpable cords Vital Signs Temp 97.0 F 09/05/17 11:08 Pulse 82 09/05/17 11:39 Resp 18 09/05/17 11:44 BP 166/60 09/05/17 11:08 Pulse Ox 92 09/05/17 11:39 Intake & Output 09/04/17 09/05/17 09/05/17 18:59 06:59 18:59 Intake Total 2532 640 360 Output Total 700 2275 900 Balance 1832 -1635 -540 Intake: IV Fluids 1716 LR 1716 IVPB 176 LR 176 Oral 640 640 360 Output: Urine 700 2275 900 Laboratory Last Values Hgb 9.9 g/dl (12.0-16.0) L 09/05/17 04:58 Hct 30 % (35-47) L 09/05/17 04:58 Plt Count 165 10^3/ul (150-450) 09/05/17 04:58 MPV 8 um3 (7.4-10.4) 09/05/17 04:58 INR (Anticoag Therapy) 1.27 (0.77-1.02) H 09/05/17 04:59 Sodium 134 mmol/L (133-145) 09/04/17 08:49 Potassium 3.9 mmol/L (3.5-5.0) 09/04/17 08:49 Chloride 100 mmol/L (101-111) L 09/04/17 08:49 Carbon Dioxide 29 mmol/L (22-32) 09/04/17 08:49 Anion Gap 5 mmol/L (2-11) 09/04/17 08:49 BUN 20 mg/dL (6-24) 09/04/17 08:49 Creatinine 0.73 mg/dL (0.51-0.95) 09/04/17 08:49 Est GFR ( Amer) 102.6 (>60) 09/04/17 08:49 Est GFR (Non-Af Amer) 79.8 (>60) 09/04/17 08:49 BUN/Creatinine Ratio 27.4 (8-20) H 09/04/17 08:49 Glucose 126 mg/dL (70-100) H 09/04/17 08:49 Calcium 8.7 mg/dL (8.6-10.3) 09/04/17 08:49 Hepatitis C Antibody Nonreactive (Nonreactive) 09/03/17 08:42 Assessment: [] POD2 SP right total knee arthoplasty Plan: []WBAT PT OT 6 mg coumadin today DC home
[2017-09-05] MEDS ORDERED: Warfarin TAB(*) 4 MG PO ONE (17:00)
--- NOTE | 2017-09-06 01:25 | DS ---
DISCHARGE SUMMARY: DATE OF ADMISSION: 09/03/17 DATE OF SURGERY: 09/03/17 DATE OF DISCHARGE/SERVICE: 09/05/17 PROVIDER/SURGEON: Stacey Porras MD * (DICTATED BY MARIA ESTHER PATEL) CIGAR ROLLER: MARIA ESTHER Calvillo PREOPERATIVE DIAGNOSIS: Severe end-stage degenerative osteoarthritis of the right knee joint. OPERATIVE PROCEDURE: Right total knee arthroplasty. HISTORY: Ms. Kenyon is a 66-year-old female with years of increasingly severe right knee pain. Radiographs show end-stage arthritis and wear of the medial tibial plateau due to chronic degeneration. She failed conservative treatment with anti-inflammatories, pain medications, intraarticular injection, and physical therapy. She failed to lose weight and wished to proceed with right total knee arthroplasty. HOSPITAL COURSE: Postop day 1, right lower extremity drain was removed with the tip intact. Calf was soft. Dorsiflexion and plantarflexion intact. Sensation to light touch intact. 2+ dorsalis pedis pulse. At this time, labs showed hemoglobin 10.5, hematocrit 31, INR 1.10. Postop day 2, dressing was changed by Dr. Porras without complication. Dorsiflexion and plantarflexion intact. Dorsalis pedis 2+. Labs; hemoglobin 9.9, hematocrit 30, INR 1.27. The patient was deemed to be orthopedically and medically stable for discharge. DISCHARGE MEDICATIONS: 1. Lyrica 50 mg p.o. 1 p.r.n. 2. Atenolol 12.5 mg p.o. q.a.m. 3. Ibuprofen, discontinued. 4. Lyrica 100 mg p.o. b.i.d. 5. Cymbalta 120 mg p.o. q.a.m. 6. Hydrochlorothiazide 25 mg p.o. q.a.m. 7. Acetaminophen 650 mg p.o. q.4 hours p.r.n., max daily dose of 4000. 8. Docusate 100 mg p.o. t.i.d. 9. Oxycodone/acetaminophen 5/325 mg 1 to 2 tabs p.o. q.4 hours p.r.n., max daily dose of 10. 10. Warfarin 2 mg tabs take 1 to 3 tablets depending on INR draws. DISCHARGE PLAN: Weightbearing as tolerated. Go to the emergency room with shortness of breath or chest pain. Call orthopedic office for increased drainage, redness, increased pain or fever. Home nurse will draw INR on Mondays and . Coumadin dosing 6 mg on 09/05/17; 2 mg on 09/06/17, 4 mg on 09/07/17; 2 mg on 09/08/17. Recheck INR on 09/09/17. Pain control with Percocet 5/325 one to two tabs every 4 to 6 hours p.r.n., max of 10 daily. Do not exceed 4000 mg of Tylenol from all sources per day. MARIA ESTHER PATEL [id number]/[facility] #: [id number] MTDD
[2017-09-06] MEDS ORDERED: Scopolamine PATCH Remove* 1 NOTE MISC PATCH OFF ONE (10:19)
== END 2017-09-05 12:35 | disposition home health service (06) | DRG 470 ==
LOC: AA 07:44 → SSU 17:00
PROVIDERS: ADMIT Orthopaedic Surgery Adult Reconstructive Orthopaedic Surgery; ATTEND Orthopaedic Surgery Adult Reconstructive Orthopaedic Surgery
PROC: 0SRC0J9 Replacement of Right Knee Joint with Synthetic Substitute, Cemented, Open Approach (ICD-10-PCS; principal; 2017-09-03 09:00)
DX: M17.11 Unilateral primary osteoarthritis, right knee (principal); B02.29 Other postherpetic nervous system involvement; Z68.41 Body mass index [BMI] 40.0-44.9, adult; E66.01 Morbid (severe) obesity due to excess calories; I10 Essential (primary) hypertension; J45.909 Unspecified asthma, uncomplicated; M25.761 Osteophyte, right knee; I34.0 Nonrheumatic mitral (valve) insufficiency; Z88.6 Allergy status to analgesic agent; Z88.1 Allergy status to other antibiotic agents; Z88.8 Allergy status to other drugs, medicaments and biological substances; Z87.442 Personal history of urinary calculi; Z90.49 Acquired absence of other specified parts of digestive tract; Z82.49 Family history of ischemic heart disease and other diseases of the circulatory system; Z80.3 Family history of malignant neoplasm of breast; Z72.89 Other problems related to lifestyle
CPT/HCPCS: 36415; 62323; 80048; 85014; 85018; 85049; 85610; 86803; 88305; 88311; A9270-GY; C1776; J1100; J1650; J2250; J2405; J2795

== ENCOUNTER 2018-07-10 09:00 | Inpatient (IN) | payer MEDICARE ==
--- NOTE | 2018-06-27 22:05 | HP ---
HISTORY AND PHYSICAL: DATE OF ADMISSION/SURGERY: 07/10/18 DATE OF OFFICE VISIT: 06/27/18 SURGEON: Stacey Porras MD * (DICTATED BY MARIA ESTHER SWIFT) PROCEDURE: Left total knee arthroplasty. PRIMARY CARE PHYSICIAN: China Kraft MD CHIEF COMPLAINT: Left knee pain. HISTORY OF PRESENT ILLNESS: Ms. Kenyon is a 67-year-old female with end- stage osteoarthritis of the left knee. She has failed conservative treatment and elected to proceed with a left total knee arthroplasty, which is scheduled for 07/10/18. PAST MEDICAL HISTORY: 1. Hypertension. 2. Depression. 3. Polymyalgia rheumatica. 4. Mitral valve prolapse. PAST SURGICAL HISTORY: 1. Lithotripsy. 2. Cholecystectomy. 3. Appendectomy. 4. Right foot surgery. 5. [place] teeth extraction. 6. Right total knee arthroplasty. CURRENT MEDICATIONS: 1. Lyrica 50 mg as needed. 2. Hydrochlorothiazide 25 mg daily. 3. Cymbalta 30 mg 2 capsules daily. 4. Atenolol 25 mg half a tab daily. 5. Lyrica 100 mg daily. 6. Ibuprofen as needed. 7. Daily multivitamin. ALLERGIES: AMPICILLIN, CODEINE causing vomiting, hay fever, OXCARBAZEPINE, CARBAMAZEPINE. FAMILY HISTORY: Coronary artery disease and cancer. SOCIAL HISTORY: She is a 67-year-old female, lives with her . She does not smoke or use drugs. Uses alcohol rarely. REVIEW OF SYSTEMS: A complete 14-point review of systems was reviewed with the patient. It was positive for history of kidney stones requiring lithotripsy. She denies history of DVT, PE, hepatitis, HIV, or anesthesia problems. PHYSICAL EXAMINATION GENERAL: She is well developed, well nourished, in no acute distress. VITAL SIGNS: She stands 62 inches tall, weighs 228 pounds. Her blood pressure is 147/78, her heart rate is 82. HEENT: Normocephalic, atraumatic. NECK: Supple. No palpable lymph nodes. PULMONARY: The lungs are clear to auscultation bilaterally. CARDIO: Regular rate and rhythm. Strong S1, S2. ABDOMEN: Soft, nontender, nondistended. NEUROLOGICAL: She is alert and oriented x3. MUSCULOSKELETAL: Left lower extremity, the skin is intact. There are no open wounds or abrasions. She has a moderate joint effusion, some tenderness over the medial and lateral joint line. She walks with an antalgic type gait favoring her left knee. She has a 2+ dorsalis pedis pulse, intact sensation to her lower extremity, muscle group strengths are intact at 5/5. ASSESSMENT AND PLAN: Ms. Kenyon is a 67-year-old female with continued complaints of left knee pain secondary to end-stage osteoarthritis. She has failed conservative treatment and elected to proceed with a left total knee arthroplasty. The surgery is scheduled for 07/10/[address] Porras discussed the risks and the benefits of the surgery at today's visit and all of her questions were answered. She will follow up with Dr. Porras 2 weeks after the surgery. MARIA ESTHER SWIFT [id number]/[facility] #: [id number] MTDD
[~2018-07-10 09:00] MED LIST changes: -Dexamethasone IV* 4 MG/ML 1 ML (4 MG) IV SLOW PU ONE; -Famotidine IV* 10 MG/ML 2 ML (20 mg) IV ONE; +Tranexamic Acid 1,000 MG in NS 0.9% 50 ML* (outpatient use) IV SCH
[2018-07-10] MEDS ORDERED: Midazolam* 1 MG/ML 2 ML VIAL (2 MG) ONE ×2 (10:31→13:07)
[2018-07-10] MEDS ORDERED: Lidocaine 2% PF * 5 ML VIAL ONE (10:31)
[2018-07-10] MEDS ORDERED: Propofol* 10 MG/ML 20 ML BTL IV PUSH ONE ×2 (10:31→14:59)
[2018-07-10] MEDS ORDERED: Bupivacaine 0.5% SDV PF* 30ML VIAL ONE ×2 (10:32→12:21)
[2018-07-10] MEDS ORDERED: fentaNYL* 50 MCG/ML 2 ML VIAL (100 MCG VIAL) ONE ×2 (10:32→10:41)
[2018-07-10] MEDS ORDERED: EPINEPHRINE 1 MG/ML 1 ML VIAL ONE (10:32)
[2018-07-10] MEDS ORDERED: ROPIVACAINE 5 MG/ML 30 ML BTL (0.5%) ONE (10:32)
[2018-07-10] MEDS ORDERED: Propofol* 500 MG/50 ML BTL ONE (10:39)
--- OUTSIDE RECORDS SUMMARY | 2018-07-10 10:39 | XMS REPORT ---
:1950 External Reference #:[id number] Author Organization [employer] Address [address] [place] [address] Phone [phone] Care Team Providers Name Role Phone China Kraft MD Primary Care Physician Unavailable Payers Type Date Identification Numbers Payment Provider Subscriber Health Maintenance Policy Number: Medicare Blue Ppo Robb Muro [facility] (O) [id number] Group Number: [id number] [address] PayID: [id number] EDDIE Parks [address] Medigap Part B Effective: Policy Number: [place] Robb Santiago [employer] 09/02/2013 [id number] Expires: 09/01/2015 PayID: [id number] [facility] [address] EDDIE Parks [id number] Medigap Part B Effective: Policy Number: [place] Robb Santiago [employer] 12/01/2010 [id number] Expires: 09/01/2013 PayID: [id number] [place] [id number] EDDIE Parks [id number] Problems Date Description Provider Status Onset: 11/23/2011 Essential hypertension Citlalli Gaxiola M.D. Onset: 11/23/2011 Mitral valve disorder Citlalli Gaxiola M.D. Onset: 11/23/2011 Tricuspid valve disorder, Ashley Phillip Active non-rheumatic M.DSaqib Onset: 09/08/2012 Electrocardiogram abnormal Citlalli Gaxiola M.D. 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 Active Onset: 07/03/2017 Localized, primary osteoarthritis Stacey Porras M.D. Active Onset: 07/03/2017 Localized, primary osteoarthritis Stacey Porras M.D. Active of the pelvic region and thigh Onset: 10/14/2017 Arthroplasty of knee Stacey Porras M.D. Active Onset: 10/14/2017 Aftercare following joint Stacey Porras M.D. 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 Cigarette Use Never Smoked Cigarettes ETOH Use Rarely consumes alcohol Smoking Patient has never smoked Recreational Drug Use Denies Drug Use Daily Caffeine Consumes on average 2 cups of and ice tea hot tea per day Enjoy Exercising Enjoys exercising Walking, water aerobics Exercise Type/Frequency Walks daily 97597 steps per day Exercise Type/Frequency Swims 2 times a week Aqua marlo Allergies, Adverse Reactions, Alerts Date Description Reaction Status Severity Comments 04/12/2009 Ampicillin active hives 04/12/2009 Codeine Phosphate active N/V 04/12/2009 Hay Fever active 04/12/2009 Oxcarbazepine active rash 04/12/2009 Carbamazepine active rash 07/03/2017 Amoxicillin active Medications Medication Date Status Form Strength Qnty SIG Indications Ordering Provider Amoxicillin 01/24 Active Capsules 500mg 4caps take 4 pills, 2 Kia Porras g 1 hour before dental or gi procedure Lyrica 12/11 Active Capsules 50mg 30cap 1 tab by s mouth MD Lenin daily as needed Hydrochlorothiaz 08/02 Active Tablets 25mg 90tab take one I10 Qutaybeh S. s tablet by Kenji mouth M.D. every day Cymbalta 01/[address] 30mg 60cap take two B02.22 oph Part s capsules Kia Dixon by mouth every day Atenolol Active Tablets 25mg 30tab 1/2 po Unknown s qd Lyrica Active Capsules 100mg 60cap 1 by Xin / s mouth Robb, daily in M.D. the evening and one in the morning Ibuprofen Active 200mg 200 Unknown mg-400 mg daily prn Multi Vitamin Active Tablets 1 by Unknown / mouth every day Tizanidine HCL 09/23 Hx Capsules 4mg 60cap take one s tab twice Kia Porras - daily as 01/23 needed. Cyclobenzaprine 09/18 Hx Tablets 10mg 60tab take 1 Z47.1 Stacey s tab by Kia Porras - mouth 2-3 01/23 times day as needed Metaxalone 09/18 Hx Tablets 800mg 60tab take one Stacey s tab 2-3 Kia Porras - times a 09/23 day needed Percocet 08/21 Hx Tablets 5-325mg 90tab 1 -2 tabs Stacey s by mouth Kia Porras - every 4-6 10/13 hours needed pain Coumadin 08/21 Hx Tablets 2mg 60tab take 1 Stacey s tab by Kia Porras - mouth 10/13 night at bedtime or as directed by md through visiting nurse. Do not take prior to surgery. Stool Softener 08/21 Hx Capsules 100mg 90cap 1 tab po Stacey s 2-3 times Kia Porras - daily 10/13 while on narcotic pain medicine. Lyrica 08/30 Hx Capsules 100mg 60cap one twice Alice Copeland s a day Morena Maxwell M.D. 10/29 Lyrica 08/28 Hx Capsules 50mg 60cap 1 by Alice Copeland s mouth per Hans, - day as M.DSaqib 08/30 needed in addition to 100mg tabs Hydrochlorothiaz 07/29 Hx Tablets 25mg 90tab 1 po qd Other s Ordering - Provider 01/24 Cozaar 12/22 Hx Tablets 50mg 60tab 1 pill by Shayna /2011 s armida Moon, - twice per D.O. Lisinopril 11/17 Hx Tablets 5mg 30tab 1 po qd Qutaybeh S Morena Rush M.D. 12/22 Norvasc 07/11 Hx Tablets 10mg 90tab 1 po qd Qutaybeh S Morena Rush M.D. 11/17 Zyrtec 04/12 Hx Chewtabs 10mg 30uni 1 tab po Qutaybeh S ts qd Morena Phillip M.D. 07/06 Norvasc 04/12 Hx Tablets 5mg 30tab 1 po qd Qutaybeh S. Morena Rush M.D. 07/11 Lyrica Hx Capsules 150mg 60cap 1 po bid Unknown /0000 s and 1 qhs - 11/17 Multi Vitamin 00/ Hx Tablets 1 po qd Unknown /0000 - 08/01 Fish Oil Hx Capsules 1000mg 1 po qd Unknown /0000 - Lyrica 00 Hx Capsules 150mg 1 po Unknown /0000 daily in - the 08/30 Cipro Hx Tablets 500mg 20tab 1 po qd x Unknown /0000 s 3 days - 12/10 Vitamin B6 00/ Hx Tablets 250mg 2 po qd Unknown /0000 - 08/21 Magnesium 00/00 Hx 1 spray Unknown /0000 qd on - abdomen 08/21 Ibuprofen 00/ Hx Tablets 400mg by mouth Unknown /0000 every 4 - to 6 10/13 hours needed Aspir-[address] 81mg 1 by Unknown /0000 mouth - every day 01/24 Claritin Hx Capsules 10mg 1 by Unknown /0000 mouth - every day 10/13 as needed Ciprofloxacin Hx Tablets 500mg Husseini, HCL /0000 MD Carlos - 07/02 Aspirin 00 Hx 325mg Unknown /0000 - 06/19 [address] Hx C[address] 30mg 2 by Unknown /0000 Part mouth - every day 07/07 Pneumococcal,Uns Active Injection Unknown pecified / Medications Administered in Office Medication Date Status Form Strength Qnty SIG Indications Ordering Provider Depomedrol Administered Injection Stacey 40MG Waqas Porras M.D. Depomedrol Administered Injection Stacey 40MG 017 Kia Porras Vital Signs Date Vital Result Comment 06/27/2018 Height 62 inches 5'2" Weight 240.00 lb BP Systolic 147 mmHg BP Diastolic 78 mmHg Respiratory Rate 17 /min Pain Level 4 BMI (Body Mass Index) 43.9 kg/m2 06/23/2018 Height 62 inches 5'2" Weight 243.38 lb Heart Rate 76 /min BP Systolic Sitting 126 mmHg BP Diastolic Sitting 80 mmHg BMI (Body Mass Index) 44.5 kg/m2 06/20/2018 Height 62 inches 5'2" Weight 244.50 lb with shoes Heart Rate 74 /min BP Systolic 164 mmHg BP Diastolic 88 mmHg BMI (Body Mass Index) 44.7 kg/m2 Ejection Fraction 60-65% ECHO. 08/09/2017 01/24/2018 Height 62 inches 5'2" Weight 228.00 lb BP Systolic 138 mmHg BP Diastolic 84 mmHg Body Temperature 98.1 F BMI (Body Mass Index) 41.7 kg/m2 10/14/2017 Height 62 inches 5'2" Weight 225.00 lb BP Systolic 144 mmHg BP Diastolic 84 mmHg Body Temperature 97.8 F Pain Level 0 BMI (Body Mass Index) 41.1 kg/m2 09/18/2017 Height 63 inches 5'3" Weight 236.00 lb per pt Heart Rate 64 /min reg BP Systolic Sitting 144 mmHg Lue BP Diastolic Sitting 90 mmHg Lue Respiratory Rate 16 /min Pain Level 2 right knee BMI (Body Mass Index) 41.8 kg/m2 08/21/2017 Height 63 inches 5'3" Weight 236.00 [...] Test Date Test Result H/L Range Note Urinalysis Profile 08/21/2017 Urine Color Yellow 1 Urine Appearance Clear 1 Urine Specific Bone Gap 1.013 1.010-1.030 1 Urine pH 6.0 5-9 1 Urine Urobilinogen Negative Negative 1 Urine Ketones Negative Negative 1 Urine Protein Negative Negative 1 Urine Leukocytes Negative Negative 1 Urine Blood Negative Negative 1 Urine Nitrite Negative Negative 1 Urine Bilirubin Negative Negative 1 Urine Glucose Negative Negative 1 Comp Metabolic Panel 08/21/2017 Sodium 137 mmol/L 133-145 1 Potassium 4.3 mmol/L 3.5-5.0 1 Chloride 103 mmol/L 101-111 1 Co2 Carbon Dioxide 29 mmol/L 22-32 1 Anion Gap 5 mmol/L 2-11 1 Glucose 91 mg/dL 70-100 1 Blood Urea Nitrogen 19 mg/dL 6-24 1 Creatinine 0.79 mg/dL 0.51-0.95 1 BUN/Creatinine Ratio 24.1 High 8-20 1 Calcium 9.2 mg/dL 8.6-10.3 1 Total Protein 6.9 g/dL 6.4-8.9 1 Albumin 4.2 g/dL 3.2-5.2 1 Globulin 2.7 g/dL 2-4 1 Albumin/Globulin Ratio 1.6 1-3 1 Total Bilirubin 0.50 mg/dL 0.2-1.0 1 Alkaline Phosphatase 88 U/L 34-104 1 Alt 8 U/L 7-52 1 Ast 17 U/L 13-39 1 Egfr Non- 72.8 >60 1 Egfr 93.6 >60 1, 2 CBC No Diff 08/21/2017 White Blood Count 6.6 10^3/uL 3.5-10.8 1 Red Blood Count 5.01 10^6/uL 4.0-5.4 1 Hemoglobin 13.2 g/dL 12.0-16.0 1 Hematocrit 40 % 35-47 1 Mean Corpuscular Volume 80 fL 80-97 1 Mean Corpuscular Hemoglobin 26 pg Low 27-31 1 Mean Corpuscular HGB Conc 33 g/dL 31-36 1 Red Cell Distribution Width 15 % 10.5-15 1 Platelet Count 252 10^3/uL 150-450 1 Mean Platelet Volume 8 um3 7.4-10.4 1 Inr/Protime 08/21/2017 Inr 0.88 0.77-1.02 1, 3 Urine Culture And 08/21/2017 Urine Culture SEE RESULT BELOW 1, 4 Sensitivities Type & Screen 08/21/2017 Patient Blood B Positive 1 Type Antibody Screen NEGATIVE 1 Laboratory test finding 08/21/2017 Partial Thrombo Time 28.3 seconds 26.0 -36.3 1, 5 PTT Basic Metabolic Panel 12/31/2011 Sodium 136 mmol/L 135-145 Potassium 4.5 mmol/L 3.5-5.0 Chloride 106 mmol/L 101-111 Co2 (Carbon Dioxide) 24.0 mmol/L 22-32 Anion Gap 6.0 mmol/L 2-11 6 Glucose 95 mg/dL 70-100 BUN 23 mg/dL 6-24 Creatinine 0.8 mg/dL 0.50-1.40 One Over Creatinine 1.25 BUN/Creatinine Ratio 28.8 High 8-20 Calcium 8.8 mg/dL 8.1-9.9 eGFR Non- 72.9 > 60 eGFR 93.8 > 60 7 1 AA /2 2 Because ethnic data is not always [...] 15-29 5 Kidney failure <15 (or dialysis) 3 Please note the change in INR reference range effective 17. 4 SEE RESULT BELOW Name: ROBB MURO : [address]: Stacey Porras MD Acct: [id number] Unit: [id number] AGE: 66 Location: [facility] Re08/21/17 SEX: F Status: REG REF SPEC: [id number] THAD: 08/21/17-[address]: Stacey Porras MD REQ: [id number] RECD: 08/21/17 STATUS: LINDSAY MAYER DR: China Kraft MD _ SOURCE: URINE SPDESC: ORDERED: Urine Culture COMMENTS: AA 09/03 QUERIES: Urine Source: Clean Catch Procedure Result Reported Site Urine Culture Final 08/22/17- 1258 ML No Growth (<1,000 CFU/mL) * ML - MAIN LAB ([facility]) . END OF REPORT * ML=Testing performed at Main Lab DEPARTMENT OF PATHOLOGY, [address] [place] [address] Navin Gonsalves M.D. Director [facility] # [id number] 5 AA 09/03 6 Anion gap measurement may be of limited value in the presence of any alkalosis, especially in a combined acid base disorder. . 7 Because ethnic data is not always readily [...] dialysis) Procedures Date CPT Code Description Status 06/20/2018 22801 EKG Tracing & Interpretation Completed 09/03/2017 25760 TKR Total Knee Replacement Completed 09/03/2017 23669 TKR Total Knee Replacement Completed 08/21/2017 34022 EKG, Interpretation Only Completed 08/09/2017 08330 ECHO Transthoracic, Real-Time 2D With Doppler And Color Completed Flow 08/09/2017 20971 ECHO Transthoracic, Real-Time 2D With Doppler And Color Completed Flow 07/12/2017 Mammogram Completed 07/03/2017 28816 Inject/Drain Joint/Bursa Major W/O US Completed 05/17/2017 61285 EKG Tracing & Interpretation Completed 08/02/2016 06787 EKG Tracing & Interpretation Completed 07/05/2016 Mammogram Completed 11/15/2015 Mammogram Completed 11/01/2015 18580 EKG Tracing & Interpretation Completed 05/16/2015 Mammogram Completed 03/03/2015 77602 EKG Tracing & Interpretation Completed 11/16/2014 Mammogram Completed 11/12/2014 Mammogram Completed 10/21/2014 Mammogram Completed 07/08/2014 03727 EKG Tracing & Interpretation Completed 09/11/2013 67096 ECHO Transthoracic, Real-Time 2D With Doppler And Color Completed Flow 08/21/2013 55282 EKG Tracing & Interpretation Completed 08/14/2013 85264 ECHO Transthoracic, Real-Time 2D With Doppler And Color Completed Flow 11/28/2012 51851 EKG Tracing & Interpretation Completed 09/16/2012 08968 ECHO Transthoracic, Real-Time 2D With Doppler And Color Completed Flow 09/08/2012 82865 ECHO Stress Test Incl Perf Contiuous ekg Monitoring Completed W/Phys Superv 09/08/2012 32476 ECHO Transthoracic, Real-Time 2D With Doppler And Color Completed Flow 11/23/2011 80908 EKG Tracing & Interpretation Completed 10/25/2011 35879 ECHO Transthoracic, Real-Time 2D With Doppler And Color Completed Flow 11/17/2010 09198 EKG Tracing & Interpretation Completed 06/05/2010 85033 ECHO Transthoracic, Real-Time 2D With Doppler And Color Completed Flow 06/07/2009 38798 ECHO Stress Test Incl Perf Contiuous ekg Monitoring Completed W/Phys Superv 06/07/2009 30256 ECHO Stress Test Incl Perf Contiuous ekg Monitoring Completed W/Phys Superv 05/16/2009 24967 ECHO Transthoracic, Real-Time 2D With Doppler And Color Completed Flow 04/12/2009 42015 EKG Tracing & Interpretation Completed 03/08/2009 32126 EKG, Interpretation Only Completed 09/26/2005 36755 Color Doppler Completed 09/26/2005 74311 Pulse Doppler & Continuous Wave Completed 09/26/2005 00587 Echocardiogram Completed Encounters Type Date Location Provider CPT E/M Dx Office Visit 06/20/2018 2:20p [facility] [place]. [address] R94.31 Kia Phillip Z01.810 I10 E66.9 I45.10 I34.0 I77.819 M17.12 Z68.41 Office Visit 01/24/2018 10:15a [facility] Stacey Porras M.D. 72143 Z47.1 [facility] Z96.651 Office Visit 07/23/2017 10:00a [facility] [place] [address] N64.59 Physical Therapy Manager Office Visit 07/08/2017 11:40a [facility] PLDTtaybeh S. 99534 I10 Kia Phillip I34.0 I36.1 Office Visit 07/03/2017 8:30a [facility] Stacey Porras M.D. 50735 M25.561 C.M.A. M25.562 M25.461 M25.462 M17.0 M16.0 M25.551 M25.552 Office Visit 05/17/2017 2:00p [facility] Suzetteroslyn SSaqib Phillip 73543 I10 Kia I34.0 I36.1 I45.10 Office Visit 03/28/2017 3:15p [facility] Alice Maxwell, 78988 B02.22 Services Of Physical Therapy Manager M.DSaqib Office Visit 11/27/2016 10:00a [facility] [place] [address] N64.59 Of [facility] [address] Office Visit 08/16/2016 9:30a [facility] Nurse Visit 11474 I10 Office Visit 08/02/2016 4:20p [facility] Qutayb S. 31232 I34.0 Philly Phillip M.D. I45.10 I10 I36.1 E66.9 Office Visit 07/12/2016 9:45a [facility] Alice Maxwell, 78056 B02.22 Services Of Philly Adam Office Visit 01/26/2016 9:45a [facility] Alice Maxwell 36005 B02.22 Services Of Philly M.DSaqib Office Visit 11/01/2015 1:40p [facility] Qutaybeh S. 51876 I34.0 Kia Phillip I45.2 I10 R94.31 Office Visit 03/03/2015 3:40p [facility] Qutaybeh S. Maghaydah, 98388 424.0 M.D. 426.51 401.9 794.31 Office Visit 07/08/2014 2:40p [facility] Qutaybeh S. Maghaydah, 18338 424.0 M.D. 426.51 401.9 794.31 Office Visit 08/21/2013 10:20a [facility] Qutaybeh S. Maghaydah, 99647 401.9 M.D. 794.31 424.0 424.2 426.51 785.2 Office Visit 11/28/2012 9:40a [facility] Qutaybeh S. Maghaydah, 92555 401.9 M.D. 794.31 424.0 424.2 426.51 Office Visit 09/08/2012 3:30p [facility] Qutaybeh S. Maghaydah, 19743 401.9 M.D. 794.31 786.50 Office Visit 01/02/2012 1:30p [facility] Xin Baldemar, N.P. 35035 401.9 Office Visit 12/11/2011 10:00a [facility] Xin Mcdermott, N.P. 71321 401.9 Office Visit 11/23/2011 10:00a [facility] Kathitaybroslyn S. Kenji, 26827 401.9 M.D. 424.0 794.31 424.2 Office Visit 12/22/2010 8:15a [facility] [place] [address] 401.9 Office Visit 11/17/2010 3:40p [facility] Kathitaybroslyn S. haydah, 08271 401.9 M.D. 424.0 794.31 Office Visit 08/05/2009 10:30a [facility] [place] [address] Office Visit 07/06/2009 9:20a [facility] Kathitasam S. Clementydarthur, 22881 401.9 M.D. 424.0 424.2 Office Visit 04/12/2009 2:20p [facility] Kathitaybroslyn S. Clementydah, 10275 401.9 M.D. 785.2 424.0 424.2 780.4 V72.81 794.31 Plan of Care Future Appointment(s):07/23/2018 9:45 am - Stacey Porras M.D. at [facility]06/23/2019 10:30 am - Titus Phelps MD at [facility]307/30/2018 10:45 am - Daisy [facility] MD at [facility]04/2018 11:30 am - Stacey Porras M.D. at [facility]2017 - Stacey Porras M.D.M17.12 Unilateral primary osteoarthritis, left kneeFollow up:Follow up: 2 weeks after bqxzsagC32.562 Pain in left kneeM25.462 Effusion, left knee
--- OUTSIDE RECORDS SUMMARY | 2018-07-10 10:39 | XMS REPORT ---
:1950 External Reference #:[id number] Author Organization [facility] Address [address] [place] [place] [address] [place] [address] Phone [phone] Care Team Providers Name Role Phone China Kraft MD Primary Care Physician Unavailable Payers Type Date Identification Numbers Payment Provider Subscriber Health Maintenance Policy Number: Medicare Blue Ppo Robb Muro [facility] (O) [id number] Group Number: [id number] [address] PayID: [id number] EDDIE Parks [address] Medigap Part B Effective: Policy Number: [place] Robb Santiago [employer] 09/02/2013 [id number] Expires: 09/01/2015 PayID: [id number] [facility] [address] EDDIE Parks [address] Medigap Part B Effective: Policy Number: [place] Robb Santiago [employer] 12/01/2010 [id number] Expires: 09/01/2013 PayID: [id number] [place] [id number] EDDIE Parks [address] Problems Date Description Provider Status Onset: 11/23/2011 [...] General Hypertension General Cancer Father due to VA x3 () - age 51 yr Mother due to Natural Causes () Paternal Grandfather due to influenza () Paternal Grandmother due to Influenza () Maternal Grandfather due to Lung disease () Maternal Grandmother due to drowned () Social History Type Date Description Comments Marital Status Lives With Spouse 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 s tablet by Kenji, mouth M.D. every day Cymbalta 01/[address] 30mg 60cap take two B02.22 Christoph Part s capsules Kia Dixon by mouth every day Atenolol Active Tablets 25mg 30tab 1/2 po Unknown /0000 s qd Lyrica Active Capsules 100mg 60cap 1 by Xin / s mouth Robb, daily in M.D. the evening and one in the morning Ibuprofen Active 200mg 200 Unknown / mg-400 mg daily prn Tizanidine HCL 09/23 Hx Capsules 4mg 60cap take one Stacey s tab twice Kia Porras - daily as 01/23 needed. Cyclobenzaprine 09/18 Hx Tablets 10mg 60tab take 1 Z47.1 Stacey s tab by Kia Porras - mouth 2-3 01/23 times day as needed Metaxalone 09/18 Hx Tablets 800mg 60tab take one s tab 2-3 Kia Porras - times a 09/23 day needed Percocet 08/21 Hx Tablets 5-325mg 90tab 1 -2 tabs s by mouth Kia Porras - every [...] Tablets 50mg 60tab 1 pill by Shayna s armida Moon, - twice per D.OSaqib Lisinopril 11/17 Hx Tablets 5mg 30tab 1 po qd Qutaybeh S Morena Rush M.D. 12/22 Norvasc 07/11 Hx Tablets 10mg 90tab 1 po qd Qutaybeh S Morena Rush M.D. 11/17 Zyrtec 04/12 Hx Chewtabs 10mg 30uni 1 tab po Qutaybeh S. ts qd Morena Phillip M.D. 07/06 Norvasc 04/12 Hx Tablets 5mg 30tab 1 po qd Qutaybeh S. Morena Rush M.D. 07/11 Lyrica 00/ Hx Capsules 150mg 60cap 1 po bid Unknown /0000 s and 1 qhs - 11/17 Multi Vitamin 00/00 Hx Tablets 1 po qd Unknown /0000 - 08/01 Fish Oil 00 Hx Capsules 1000mg 1 po qd Unknown /0000 - Lyrica 00/00 Hx Capsules 150mg 1 po Unknown /0000 daily in - the 08/30 Cipro Hx Tablets 500mg 20tab 1 po qd x Unknown /0000 s 3 days - 12/10 Vitamin B6 00/00 Hx Tablets 250mg 2 po qd Unknown /0000 - 08/21 Magnesium 00/00 Hx 1 spray Unknown /0000 qd on - abdomen 08/21 Ibuprofen 00/00 Hx Tablets 400mg by mouth Unknown /0000 every 4 - to 6 02/11 hours needed Aspir-[address] 81mg 1 by Unknown /0000 mouth - every day 01/24 Claritin Hx Capsules 10mg 1 by Unknown /0000 mouth - every day 10/13 as needed Ciprofloxacin Hx Tablets 500mg Husseini, HCL / MD Carlos - 07/02 Aspirin 00 Hx 325mg Unknown /0000 - 06/[address] Hx [address] 30mg 2 by Unknown /0000 Part mouth - every day 07/07 Pneumococcal,Uns Active Injection Unknown pecified / Medications Administered in Office Medication Date Status Form Strength Qnty SIG Indications Ordering Provider Depomedrol Administered Injection Stacey 40MG 017 Kia Porras Depomedrol Administered Injection Stacey 40MG 017 Kia Porras Vital Signs Date Vital Result Comment 06/23/2018 Height 62 inches 5'2" Weight 243.38 [...] 1 Urine Appearance Clear 1 Urine Specific [place] 1.013 1.010-1.030 1 Urine pH 6.0 5-9 [...] >60 1 Egfr 93.6 >60 1, 2 Urine Culture And 08/21/2017 Urine Culture SEE RESULT BELOW 1, 3 Sensitivities CBC No Diff 08/21/2017 White Blood Count [...] 1 Inr/Protime 08/21/2017 Inr 0.88 0.77-1.02 1, 4 Laboratory test finding 08/21/2017 Partial Thrombo Time 28.3 seconds 26.0 -36.3 1, 5 PTT Type & Screen 08/21/2017 Patient Blood Type B Positive 1 Antibody Screen NEGATIVE 1 Basic Metabolic Panel 12/31/2011 Sodium 136 mmol/L [...] eGFR 93.8 > 60 7 1 AA 1/2 2 Because ethnic data is not always [...] 5 Kidney failure <15 (or dialysis) 3 SEE RESULT BELOW Name: ROBB MURO : [address]: Stacey Porras MD Acct: [id number] Unit: [id number] AGE: 66 Location: [facility] Re08/21/17 SEX: F Status: REG REF SPEC: [id number] THAD: 08/21/[address] [facility] [address]: Stacey Porras MD REQ: [id number] RECD: 08/21/17 STATUS: LINDSAY MAYER DR: China Kraft MD _ SOURCE: URINE SPDESC: ORDERED: Urine Culture COMMENTS: REBECCA 09/03 QUERIES: Urine Source: Clean Catch Procedure Result Reported Site Urine Culture Final 08/22/17- 1258 ML No Growth (<1,000 CFU/mL) * ML - MAIN LAB (PSC1) . END OF REPORT * ML=Testing performed at Main Lab DEPARTMENT OF PATHOLOGY, [address] [place] [address] Navin Gonsalves M.D. Director [facility] # [id number] Please note the change in INR reference range effective 17. 5 AA 1/2 6 Anion gap measurement may be of [...] Procedures Date CPT Code Description Status 06/20/2018 91271 EKG Tracing & Interpretation Completed 09/03/2017 36004 TKR Total Knee Replacement Completed 09/03/2017 39346 TKR Total Knee Replacement Completed 08/21/2017 34990 EKG, Interpretation Only Completed 08/09/2017 30458 ECHO Transthoracic, Real-Time 2D With Doppler And Color Completed Flow 08/09/2017 69899 ECHO Transthoracic, Real-Time 2D With Doppler And Color Completed Flow 07/12/2017 Mammogram Completed 07/03/2017 25634 Inject/Drain Joint/Bursa Major W/O US Completed 05/17/2017 14702 EKG Tracing & Interpretation Completed 08/02/2016 03375 EKG Tracing & Interpretation Completed 07/05/2016 Mammogram Completed 11/15/2015 Mammogram Completed 11/01/2015 86887 EKG Tracing & Interpretation Completed 05/16/2015 Mammogram Completed 03/03/2015 06966 EKG Tracing & Interpretation Completed 11/16/2014 Mammogram Completed 11/12/2014 Mammogram Completed 10/21/2014 Mammogram Completed 07/08/2014 61500 EKG Tracing & Interpretation Completed 09/11/2013 60879 ECHO Transthoracic, Real-Time 2D With Doppler And Color Completed Flow 08/21/2013 89413 EKG Tracing & Interpretation Completed 08/14/2013 76418 ECHO Transthoracic, Real-Time 2D With Doppler And Color Completed Flow 11/28/2012 17874 EKG Tracing & Interpretation Completed 09/16/2012 49738 ECHO Transthoracic, Real-Time 2D With Doppler And Color Completed Flow 09/08/2012 59837 ECHO Stress Test Incl Perf Contiuous ekg Monitoring Completed W/Phys Superv 09/08/2012 08290 ECHO Transthoracic, Real-Time 2D With Doppler And Color Completed Flow 11/23/2011 32754 EKG Tracing & Interpretation Completed 10/25/2011 83291 ECHO Transthoracic, Real-Time 2D With Doppler And Color Completed Flow 11/17/2010 21172 EKG Tracing & Interpretation Completed 06/05/2010 30529 ECHO Transthoracic, Real-Time 2D With Doppler And Color Completed Flow 06/07/2009 40996 ECHO Stress Test Incl Perf Contiuous ekg Monitoring Completed W/Phys Superv 06/07/2009 60820 ECHO Stress Test Incl Perf Contiuous ekg Monitoring Completed W/Phys Superv 05/16/2009 57888 ECHO Transthoracic, Real-Time 2D With Doppler And Color Completed Flow 04/12/2009 94107 EKG Tracing & Interpretation Completed 03/08/2009 27993 EKG, Interpretation Only Completed 09/26/2005 89720 Color Doppler Completed 09/26/2005 12880 Pulse Doppler & Continuous Wave Completed 09/26/2005 25405 Echocardiogram Completed Encounters Type Date Location Provider CPT E/M Dx Office Visit 01/24/2018 10:15a [facility] Por[facility] M.D. 47966 Z47.1 C.M.A. Z96.651 Office Visit 07/23/2017 10:00a [facility] [place] [address] N64.59 [facility] Office Visit 07/08/2017 11:40a [facility] Ashley SSaqib 89046 I10 Kia Phillip I34.0 I36.1 Office Visit 07/03/2017 8:30a [facility] Porras M.D. 65845 M25.561 C.M.A. M25.562 M25.461 M25.462 M17.0 M16.0 M25.551 M25.552 Office Visit 05/17/2017 2:00p [facility] Suzetteybroslyn Phillip 74674 I10 Kia I34.0 I36.1 I45.10 Office Visit 03/28/2017 3:15p [facility] Alice Maxwell, 17733 B02.22 [facility] Philly Adam Office Visit 11/27/2016 10:00a [facility] [place] [address] N64.59 Of [facility] Office Visit 08/16/2016 9:30a [facility] Nurse Visit 97953 I10 Office Visit 08/02/2016 4:20p [facility] Ashley SSaqib 14076 I34.0 Philly Phillip M.D. I45.10 I10 I36.1 E66.9 Office Visit 07/12/2016 9:45a [facility] Alice SantiagoSaqib Hans, 22925 B02.22 Services Of Customer Service Manager M.D. Office Visit 01/26/2016 9:45a [facility] Alice SantiagoSaqib Olivaresalejandro, 94058 B02.22 Services [facility] Customer Service Manager M.D. Office Visit 11/01/2015 1:40p [facility] Qutaybeh S. 96212 I34.0 Kia Phillip I45.2 I10 R94.31 Office Visit 03/03/2015 3:40p [facility] Qutaybeh S. Maghaydah, 84649 424.0 M.D. 426.51 401.9 794.31 Office Visit 07/08/2014 2:40p [facility] Qutaybeh S. Maghaydah, 47049 424.0 M.D. 426.51 401.9 794.31 Office Visit 08/21/2013 10:20a [facility] Qutaybeh S. Maghaydah, 78722 401.9 M.D. 794.31 424.0 424.2 426.51 785.2 Office Visit 11/28/2012 9:40a [facility] Qutaybeh S. Maghaydah, 57045 401.9 M.D. 794.31 424.0 424.2 426.51 Office Visit 09/08/2012 3:30p [facility] Qutaybeh S. Maghaydah, 11167 401.9 M.D. 794.31 786.50 Office Visit 01/02/2012 1:30p [facility] Xin Mcdermott, N.P. 63441 401.9 Office Visit 12/11/2011 10:00a [facility] Xin Mcdermott, N.P. 67577 401.9 Office Visit 11/23/2011 10:00a [facility] Qutaybeh S. Maghaydah, 61696 401.9 M.D. 424.0 794.31 424.2 Office Visit 12/22/2010 8:15a [facility] Nurse Visit 86440 401.9 Office Visit 11/17/2010 3:40p [facility] Ashley Phillip, 82887 401.9 M.D. 424.0 794.31 Office Visit 08/05/2009 10:30a [facility] [place] [address] Office Visit 07/06/2009 9:20a [facility] Ashley Phillip, 01490 401.9 M.D. 424.0 424.2 Office Visit 04/12/2009 2:20p [facility] Ashley Phillip, 04497 401.9 M.D. 785.2 424.0 424.2 780.4 V72.81 794.31 Plan of Care Future Appointment(s):06/23/2019 10:30 am - Titus Phelps MD at [id number]/30/2018 10:45 am - Daisy Mcknight MD at [facility]07/10/2018 11:30 am - Stacey Porras M.D. at [facility]..06/27/2018 8:30 am - Stacey Porras M.D. at [facility]..06/23/2018 - Titus Phelps MDG50.0 Trigeminal neuralgiaComments:Discussed in detail the concerns that facial pain could trigger her neuralgia and so avoiding dentalprocedures where possible and treating flares of neuralgia early would help to keep things quiet. Discussed that there are procedures to do for trigeminal neuralgia that could possibly decrease the need for lyrica which is affecting her slightly but since the sympotms from lyrica are slight she does nto want to try a procedure such as injection or to try gabapentin or other meds instead.I will see yearly but she will have a low threshhold for calling with flaresFollow up:1 YEARG25.0 Essential tremorComments:Has a mild intention tremor that I discussed is usually familial and benign but if gets very symptomatic then switching atenolol to inderal may help. Discussed triggers of being nervous, caffeine or hypoglycemia can exacerbate.
--- OUTSIDE RECORDS SUMMARY | 2018-07-10 10:40 | XMS REPORT ---
:1950 External Reference #:[id number] Author Organization [facility] [address] [facility] [address] Address [address] [facility] [place] [address] [place] [address] Phone [phone] Care Team Providers Name Role Phone China Kraft MD Primary Care Physician Unavailable Payers Type Date Identification Numbers Payment Provider Subscriber Health Maintenance Policy Number: Medicare Blue Ppo Robb Muro [facility] (O) [id number] Group Number: [id number] [address] PayID: [id number] EDDIE Parks [address] Medigap Part B Effective: Policy Number: [place] Robb Santiago [employer] 09/02/2013 [id number] Expires: 09/01/2015 PayID: [id number] [facility] [id number] EDDIE Parks [address] Medigap Part B Effective: Policy Number: [place] Robb Santiago [employer] 12/01/2010 [id number] Expires: 09/01/2013 PayID: [id number] [place] [id number] EDDIE Parks [id number] Problems Date Description Provider Status Onset: 11/23/2011 Essential hypertension Citlalli Gaxiola M.D. Onset: 11/23/2011 Mitral valve disorder Citlalli Gaxiola M.D. Onset: 11/23/2011 Tricuspid valve disorder, Ashley Phillip Active non-rheumatic M.DSaqib Onset: 09/08/2012 Electrocardiogram abnormal Citlalli Gaxiola M.D. 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 Active Onset: 07/03/2017 Localized, primary osteoarthritis Stacey Porras M.D. Active Onset: 07/03/2017 Localized, primary osteoarthritis Stacey Porras M.D. Active of the pelvic region and thigh Onset: 10/14/2017 Arthroplasty of knee Stacey Porras M.D. Active Onset: 10/14/2017 Aftercare following joint Stacey Porras M.D. 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 s tablet by armida Phillip M.D. every day Cymbalta 01/25 Active Caps [...] 200mg 200 Unknown mg-400 mg daily prn Tizanidine HCL 09/23 [...] 5-325mg 90tab 1 -2 tabs s by armida Porras M.D. - every 4-6 10/13 hours needed pain Coumadin 08/21 Hx Tablets 2mg 60tab take 1 s tab by Kia Porras - mouth 10/13 night at bedtime or as directed by through visiting nurse. Do not take prior to surgery. Stool Softener 08/21 Hx Capsules 100mg 90cap 1 tab po Stacey s 2-3 times Kia Porras - daily 10/13 while on narcotic pain medicine. Lyrica 08/30 Hx Capsules 100mg 60cap one twice Alice Copeland /Kate s a day Morena Maxwell M.D. 10/29 Lyrica 08/28 Hx Capsules 50mg 60cap 1 by Alice Duffy2016 s mouth per Hans, - day as M.DSaqib 08/30 needed in addition to 100mg tabs Hydrochlorothiaz 07/29 Hx Tablets 25mg 90tab 1 po qd Other s Ordering - Provider 01/24 Cozaar 12/22 Hx Tablets 50mg 60tab 1 pill by Shayna /2011 s mouth Red, - twice per D.O. Lisinopril 11/17 Hx Tablets 5mg 30tab 1 po qd Qutaybeh S. Morena Rush M.D. 12/22 Norvasc 07/11 Hx Tablets 10mg 90tab 1 po qd Qutaybeh S. Morena Rush M.D. 11/17 Zyrtec 04/12 Hx Chewtabs 10mg 30uni 1 tab po Qutaybeh ts qd Morena Phillip M.D. 07/06 Norvasc [...] /0000 daily in - the 08/30 Cipro 00/ Hx Tablets 500mg 20tab 1 po qd x Unknown /0000 s 3 days - 12/10 Vitamin B6 00/00 Hx Tablets 250mg 2 po qd Unknown /0000 - 08/21 Magnesium 00/00 Hx 1 spray Unknown /0000 qd on - abdomen 08/21 Ibuprofen 00/00 Hx Tablets 400mg by mouth Unknown /0000 every 4 - to 6 10/13 hours /2017 needed Aspir-81 00/[address] 81mg 1 by Unknown /0000 mouth - every day 01/24 Claritin 00/00 Hx Capsules 10mg 1 by Unknown /0000 mouth - every day 10/13 as needed /2018 Ciprofloxacin 00/00 Hx Tablets 500mg Husseini, HCL /0000 MD Carlos - 07/02 Aspirin 00 Hx 325mg Unknown /0000 - 06/19 Duloxetine HCL Hx Caps [address] 30mg 2 by Unknown /0000 Part mouth - every day 07/07 Pneumococcal,Uns Active Injection Unknown pecified /0000 Medications Administered in Office Medication Date Status Form Strength Qnty SIG Indications Ordering Provider Depomedrol Administered Injection Stacey 40MG 017 Kia Porras Depomedrol Administered Injection Stacey 40MG 017 iKa Porras Vital Signs Date Vital Result Comment 06/20/2018 Height 62 inches 5'2" Weight 244.50 [...] 1 Urine Appearance Clear 1 Urine Specific [place] 1.013 1.010-1.030 1 Urine pH 6.0 5-9 [...] eGFR 93.8 > 60 7 1 AA / 2 Because ethnic data is not always [...] [address]: Stacey Porras MD Acct: [id number] Unit: [id number] AGE: 66 Location: [facility] Re08/21/17 SEX: F Status: REG REF SPEC: [id number] THAD: 08/21/17-[address] [facility] [address]: Stacey Porras MD REQ: [id number] RECD: 08/21/17 STATUS: LINDSAY MAYER DR: China Kraft MD _ SOURCE: URINE SPDESC: ORDERED: Urine Culture COMMENTS: REBECCA 09/03 QUERIES: Urine Source: Clean Catch Procedure Result Reported Site Urine Culture Final 08/22/17- 1258 ML No Growth (<1,000 CFU/mL) * ML - MAIN LAB ([facility]) . END OF REPORT * ML=Testing performed at Main Lab DEPARTMENT OF PATHOLOGY, [address] [place] [address] Navin Gonsalves M.D. Director [facility] # [id number] Please note the change in INR reference range effective 17. 5 AA 09/03 6 Anion gap measurement [...] Procedures Date CPT Code Description Status 06/20/2018 30513 EKG Tracing & Interpretation Completed 09/03/2017 58606 TKR Total Knee Replacement Completed 09/03/2017 04798 TKR Total Knee Replacement Completed 08/21/2017 12937 EKG, Interpretation Only Completed 08/09/2017 47492 ECHO Transthoracic, Real-Time 2D With Doppler And Color Completed Flow 08/09/2017 64055 ECHO Transthoracic, Real-Time 2D With Doppler And Color Completed Flow 07/12/2017 Mammogram Completed 07/03/2017 27944 Inject/Drain Joint/Bursa Major W/O US Completed 05/17/2017 54561 EKG Tracing & Interpretation Completed 08/02/2016 09786 EKG Tracing & Interpretation Completed 07/05/2016 Mammogram Completed 11/15/2015 Mammogram Completed 11/01/2015 31315 EKG Tracing & Interpretation Completed 05/16/2015 Mammogram Completed 03/03/2015 97297 EKG Tracing & Interpretation Completed 11/16/2014 Mammogram Completed 11/12/2014 Mammogram Completed 10/21/2014 Mammogram Completed 07/08/2014 51419 EKG Tracing & Interpretation Completed 09/11/2013 40465 ECHO Transthoracic, Real-Time 2D With Doppler And Color Completed Flow 08/21/2013 65759 EKG Tracing & Interpretation Completed 08/14/2013 68847 ECHO Transthoracic, Real-Time 2D With Doppler And Color Completed Flow 11/28/2012 88756 EKG Tracing & Interpretation Completed 09/16/2012 42103 ECHO Transthoracic, Real-Time 2D With Doppler And Color Completed Flow 09/08/2012 91315 ECHO Stress Test Incl Perf Contiuous ekg Monitoring Completed W/Phys Superv 09/08/2012 69413 ECHO Transthoracic, Real-Time 2D With Doppler And Color Completed Flow 11/23/2011 60043 EKG Tracing & Interpretation Completed 10/25/2011 93968 ECHO Transthoracic, Real-Time 2D With Doppler And Color Completed Flow 11/17/2010 25819 EKG Tracing & Interpretation Completed 06/05/2010 47267 ECHO Transthoracic, Real-Time 2D With Doppler And Color Completed Flow 06/07/2009 40054 ECHO Stress Test Incl Perf Contiuous ekg Monitoring Completed W/Phys Superv 06/07/2009 22228 ECHO Stress Test Incl Perf Contiuous ekg Monitoring Completed W/Phys Superv 05/16/2009 54459 ECHO Transthoracic, Real-Time 2D With Doppler And Color Completed Flow 04/12/2009 05794 EKG Tracing & Interpretation Completed 03/08/2009 94372 EKG, Interpretation Only Completed 09/26/2005 63801 Color Doppler Completed 09/26/2005 88489 Pulse Doppler & Continuous Wave Completed 09/26/2005 11382 Echocardiogram Completed Encounters Type Date Location Provider CPT E/M Dx Office Visit 01/24/2018 10:15a [facility] Stacey Porras M.D. 53407 Z47.1 C.M.A. Z96.651 Office Visit 07/23/2017 10:00a [facility] [place] [address] N64.59 [facility] Office Visit 07/08/2017 11:40a [facility] Ashley Voss 35570 I10 Kia Phillip I34.0 I36.1 Office Visit 07/03/2017 8:30a [facility] Stacey Porras M.D. 43585 M25.561 C.M.A. M25.562 M25.461 M25.462 M17.0 M16.0 M25.551 M25.552 Office Visit 05/17/2017 2:00p [facility] Ashley Phillip 65149 I10 Kia I34.0 I36.1 I45.10 Office Visit 03/28/2017 3:15p [facility] Alice Maxwell 09055 B02.22 [facility] Office Visit 11/27/2016 10:00a [facility] [place] [address] N64.59 Of [facility] Office Visit 08/16/2016 9:30a [facility] Nurse Visit 63814 I10 Office Visit 08/02/2016 4:20p [facility] Ashley Voss 13349 I34.0 Philly Phillip M.D. I45.10 I10 I36.1 E66.9 Office Visit 07/12/2016 9:45a [facility] Alice Maxwell 76952 B02.22 [facility] Office Visit 01/26/2016 9:45a [facility] Alice Maxwell 02493 B02.22 Services [facility] Kia Office Visit 11/01/2015 1:40p [facility] Kathitaybroslyn S. 44682 I34.0 Kia Phillip I45.2 I10 R94.31 Office Visit 03/03/2015 3:40p [facility] Qutaybeh S. Maghaydah, 74332 424.0 M.D. 426.51 401.9 794.31 Office Visit 07/08/2014 2:40p [facility] Qutaybeh S. Maghaydah, 61177 424.0 M.D. 426.51 401.9 794.31 Office Visit 08/21/2013 10:20a [facility] Qutaybeh S. Maghaydah, 05136 401.9 M.D. 794.31 424.0 424.2 426.51 785.2 Office Visit 11/28/2012 9:40a [facility] Qutaybeh S. Maghaydah, 23443 401.9 M.D. 794.31 424.0 424.2 426.51 Office Visit 09/08/2012 3:30p [facility] Qutaybeh S. Maghaydah, 76219 401.9 M.D. 794.31 786.50 Office Visit 01/02/2012 1:30p [facility] Xin Mcdermott, N.P. 34495 401.9 Office Visit 12/11/2011 10:00a [facility] Xin Mcdermott, N.P. 28104 401.9 Office Visit 11/23/2011 10:00a [facility] Qutaybeh S. Maghaydah, 21494 401.9 M.D. 424.0 794.31 424.2 Office Visit 12/22/2010 8:15a [facility] [place] [address] 401.9 Office Visit 11/17/2010 3:40p [facility] Qutaybeh S. Maghaydah, 70601 401.9 M.D. 424.0 794.31 Office Visit 08/05/2009 10:30a [facility] [place] [address] Office Visit 07/06/2009 9:20a [facility] Ashley Phillip, 74153 401.9 M.D. 424.0 424.2 Office Visit 04/12/2009 2:20p [facility] Ashley Phillip, 72788 401.9 M.D. 785.2 424.0 424.2 780.4 V72.81 794.31 Plan of Care Future Appointment(s):07/30/2018 10:45 am - Daisy Mcknight MD at [facility]06/23/2018 11:45 am - Titus Phelps MD at [facility] Wpzyzq9607/10/2018 11:30 am - Stacey Porras M.D. at [facility].06/27/2018 8:30 am - Stacey Porras M.D. at [facility].06/20/2018 - Ashley Phillip M.D.R94.31 Abnormal electrocardiogram [ECG] [EKG]Z01.810 Encounter for preprocedural cardiovascular gxisvcydpsxX93 Essential (primary) hypertensionFollow up:9 months ovE66.9 Obesity, nfxemxbdmciL86.10 Unspecified right bundle-branch wylyrF71.0 Nonrheumatic mitral (valve) hogbhhrkgngwqT46.819 Aortic ectasia, unspecified siteNew Orders: Echocardiogram
[2018-07-10] MEDS ORDERED: Clindamycin 900 MG/D5W BAG(*) 900 MG/50 ML BAG IVPB ONE (10:41)
[2018-07-10] MEDS ORDERED: Scopolamine 1.5 mg* PATCH ONE (13:04)
[2018-07-10] MEDS ORDERED: KETAMINE HCL* 50 MG/ML 10 ML VIAL ONE (13:24)
[2018-07-10] MEDS ORDERED: EPHEDrine (Pressors)* 50 MG/ML VIAL ONE (13:28)
[2018-07-10] MEDS ORDERED: Phenylephrine IV* 40 MCG/ML 10 ML SYRINGE ONE (13:34)
[2018-07-10] MEDS ORDERED: VASOPRESSIN 20 UNITS/ML 1 ML VIAL ONE (13:44)
[2018-07-10] MEDS ORDERED: Ketorolac INJ* 30 MG/ML 1 ML VIAL IV PRN (14:05)
[2018-07-10] MEDS ORDERED: Acetaminophen IV 1GM/100ML * 1,000 MG/100 ML VIAL IVPB ONE (14:05)
[2018-07-10] MEDS ORDERED: Ondansetron INJ* 2 MG/ML VIAL IV PRN ×2 (14:05→16:00)
[2018-07-10] MEDS ORDERED: HYDROmorphone INJ1* 1 MG/ML SYRINGE IV PRN (14:05)
[2018-07-10] MEDS ORDERED: Naloxone* 0.4 MG/ML 1 ML VIAL IV PRN (14:05)
[2018-07-10] MEDS ORDERED: Dexamethasone IV* 4 MG/ML 1 ML (4 MG) ONE (14:13)
[2018-07-10] MEDS ORDERED: Bisacodyl SUPP* 10 MG SUPP PR PRN (16:00)
[2018-07-10] MEDS ORDERED: Cyclobenzaprine TAB* 10 MG PO PRN (16:00)
[2018-07-10] MEDS ORDERED: oxyCODONE TAB* 5 MG TAB PO PRN (16:00)
[2018-07-10] MEDS ORDERED: Morphine VIAL* 4 MG/ML VIAL (1 ml vial) IV PRN (16:00)
[2018-07-10] MEDS ORDERED: diPHENhydraMINE IV* 50 MG/ML 1 ml VIAL (BENADRYL) IV PRN (16:00)
[2018-07-10] MEDS ORDERED: traMADol TAB* 50 MG PO PRN (16:00)
[2018-07-10] MEDS ORDERED: oxyCODONE/Acetamin 5/325 MG* TAB PO PRN (16:00)
[2018-07-10] MEDS ORDERED: diPHENhydraMINE PO* 25 MG PO PRN (16:00)
[2018-07-10] MEDS ORDERED: Polyethylene Glycol 3350* 17 GM PACKET PO PRN (16:00)
[2018-07-10] MEDS ORDERED: Magnesium Hydroxide LIQ* 30 ML UDC PO PRN (16:00)
[2018-07-10] MEDS ORDERED: Acetaminophen IV 1GM/100ML * 100 ML ONE (17:34)
[2018-07-10] MEDS ORDERED: Warfarin TAB(*) 6 MG PO ONE (19:00)
[2018-07-10] MEDS: Pregabalin CAP(*) 100 MG PO SCH (19:19)
[2018-07-10] MEDS: oxyCODONE/Acetamin 5/325 MG* TAB PO PRN (19:19)
[2018-07-10] MEDS: Docusate CAP* 100 MG PO SCH (19:19)
[2018-07-10] MEDS: Magnesium Hydroxide LIQ* 30 ML UDC PO SCH (19:19)
[2018-07-10] MEDS: ceFAZolin 1 GM in Dextrose (*) 1 GM/50 ML BAG IVPB SCH (21:15)
[2018-07-11] MEDS: oxyCODONE/Acetamin 5/325 MG* TAB PO PRN ×5 (00:30→15:59)
[2018-07-11] MEDS: Acetaminophen TAB* 325 MG PO SCH ×2 (02:06→10:26)
[2018-07-11] MEDS: ceFAZolin 1 GM in Dextrose (*) 1 GM/50 ML BAG IVPB SCH ×2 (05:01→13:57)
[2018-07-11 06:50] LABS: Hematocrit 34 % (35-47); Hemoglobin 11.1 g/dl (12.0-16.0); Mean Platelet Volume 8.3 fL (7.4-10.4); Platelet Count 209 10^3/ul (150-450)
[2018-07-11 06:53] LABS: INR 0.95 (0.77-1.02)
[2018-07-11 07:04] LABS: EGFR Non-African American 79.5 (>60)
[2018-07-11] MEDS: Pregabalin CAP(*) 100 MG PO SCH (08:17)
[2018-07-11] MEDS: Docusate CAP* 100 MG PO SCH (08:18)
[2018-07-11] MEDS ORDERED: DULoxetine DR CAP* 30 MG CAP.DR PO SCH (09:00)
[2018-07-11] MEDS ORDERED: Hydrochlorothiazide TAB* 25 MG PO SCH (09:00)
[2018-07-11] MEDS ORDERED: Enoxaparin(*) 40 MG/0.4 ML SYR SUBCUT SCH (09:00)
[2018-07-11] MEDS ORDERED: Atenolol TAB* 25 MG PO SCH (09:00)
[2018-07-11] MEDS: Magnesium Hydroxide LIQ* 30 ML UDC PO SCH (10:26)
--- NOTE | 2018-07-11 11:16 | PN ---
Progress Note - Progress Note Date of Service: 07/11/18 SOAP: Subjective: []Patient seen at bedside, doing very well. Mastered all PT/OT goals and her pain is well managed. She is hoping to go home after therapy this afternoon. Objective: [] Vital Signs Temp 98.2 F 07/11/18 08:15 Pulse 63 07/11/18 08:15 Resp 16 07/11/18 08:18 BP 173/71 07/11/18 08:15 Pulse Ox 96 07/11/18 08:15 Intake & Output 07/10/18 07/11/18 07/11/18 18:59 06:59 18:59 Intake Total 1500 3720 480 Output Total 550 4150 600 Balance 950 -430 -120 Weight 234 lb Intake: IV Fluids 1500 980 LR 980 lr 1500 Oral 2740 480 Output: Urine 600 Alonzo 450 4150 Estimated Blood Loss 100 Other: Estimated Void Medium # Bowel Movements 0 Estimated Stool Amount Medium # Voids 1 Vital Signs Temp Pulse Resp BP Pulse Ox 98.2 F 63 16 173/71 96 07/11/18 08:15 07/11/18 08:15 07/11/18 08:18 07/11/18 08:15 07/11/18 08:15 Left knee dressings changed wound benign calf NT and soft +DF/PF left ankle sensation intact distally Assessment: []s/p Left total knee arthroplasty POD #1 Plan: []PT OT this afternoon WBAT Change coumadin to ASA 325 mg BID Discharge home today after PT Follow up with Dr. Porras in 10-14 days as scheduled.
[2018-07-11 14:34] VITALS: BP 144/64
--- NOTE | 2018-07-11 20:52 | OP ---
OPERATIVE REPORT: DATE OF OPERATION: 07/10/18 DATE OF : 50 SURGEON: Stacey Porras MD STAGECRAFT PROFESSOR: MARIA ESTHER Banks Ms. did help throughout the procedure with preparation of the leg, wound retraction, manipulat ion of the knee, and wound closure. ANESTHESIOLOGIST: Dr. Henry. ANESTHESIA: Spinal. PRE-OP DIAGNOSIS: Severe end-stage degenerative osteoarthritis of the left knee joint. POST-OP DIAGNOSIS: Severe end-stage degenerative osteoarthritis of the left knee joint. OPERATIVE PROCEDURE: Left total knee arthroplasty. TOURNIQUET TIME: 44 minutes. ESTIMATED BLOOD LOSS: 200 cc. COMPLICATIONS: None. SPECIMEN: Bone and cartilage from the left knee joint sent to Pathology. HARDWARE USED: This is cemented Cardona and Nephew total knee arthroplasty hardware. Two packages of S implex bone cement. For the femur, a size 5 left Oxinium femoral component Legion type. For the bas e plate, a 3 left Rosa II tibial base plate. For the insert, a 9-mm posterior stabilized articular insert, size 3-4 and for the patella, a 32-mm 3-peg all poly patella. BRIEF HISTORY AND INDICATIONS: Ms. Kenyon is a 67-year-old female with years of increasingly sev ere left knee pain and deformity. She failed conservative treatment with antiinflammatories, pain me dication, intraarticular injection, and physical therapy. Radiographs showed ajlu-pa-ppoo arthritis. Due to continued pain and decreased quality of life, she elected to undergo left total knee arthrop lasty. Informed consent was obtained from the patient. She understood the risks of surgery included , but were not limited to bleeding, infection, damage to nearby structures, continued pain, need for further surgery, intraoperative fracture, nerve palsy, hardware failure or loosening, knee stiffness, loss of motion, stroke, heart attack, blood clot, and . INTRAOPERATIVE FINDINGS: Intraoperatively, the patient was noted to have extreme loss of cartilage a long the medial and lateral compartments as well as the patellofemoral compartment. She had some bon y deformation of the medial tibial plateau due to chronic wear. She had extensive osteophyte formati on. DESCRIPTION OF PROCEDURE: Ms. Kenyon was identified in the preanesthesia unit. Her left lower ex tremity was marked as the correct operative side. Informed consent was signed and placed in the martine t. The patient was taken to the operating room and placed under spinal anesthesia. A Alonzo catheter was placed. Tourniquet was placed on the left thigh. Left lower extremity was prepped and draped i n the usual sterile fashion. Preop time-out was made to correctly identify the patient, side and sit e. Appropriate perioperative antibiotics were given within 1 hour of incision. A midline incision was made with a 10 blade and carried down to the extensor mechanism. A new 10 sreekanth de was used to make a standard medial parapatellar arthrotomy. Patella was subluxed laterally. Elec trocautery was used to subperiosteally elevate the soft tissue off the superomedial tibia to the mid sagittal plane. The knee was flexed up. The anterior horn of the lateral meniscus and ACL were geoff ply released. A drill was used to enter the distal femur. Intramedullary distal femoral cutting guid e was pinned on the distal femur. Oscillating saw was used to make the distal femoral cut. External rotation guide was pinned on the distal femur and the distal femur was sized to a size 5. Size 5 mul ti-cutting jig was pinned on the distal femur. Oscillating saw was used to make the appropriate 4 ch amfer cuts. PCL was completely released. The tibia was subluxed anteriorly. Extramedullary tibial cutting guide was pinned on the proximal tibia. Oscillating saw was used to make the proximal tibial cut perpendi cular to the mechanical axis of the tibia. The bone was carefully removed. The knee was brought out into full extension. The spacer block had excellent fit with the knee in full extension. Medial and lateral ligaments were well balanced. The flexion and extension gaps were well balanced. The knee w as flexed up. The lamina swim coach was placed both medially and laterally. Any remaining meniscus wa s carefully removed using electrocautery. Curved osteotome was used to remove any posterior osteophyt es. Tibial tray and drop ilsa were placed and once again confirmed a satisfactory tibial cut. A left size 5 femoral trial was impacted on to the distal femur and had good fit and stability. The box for the posterior stabilized implant was prepared using a reamer and box cut osteotome. A size 3 tibial tra y trial with a 9-mm insert trial was placed and the knee was taken through a range of motion. The kn ee had full extension to 125 degrees of flexion. All trials were carefully removed. The tibia was s ubluxed anteriorly and sized to a size 3. Proximal tibia was prepared using a size 3 keel punch. Al l bony cut surfaces were copiously irrigated with sterile saline and dried. Final implants were ceme nted into place starting with the tibia followed by the femur and lastly the patella. A 9-mm insert trial was placed and the knee was brought out into full extension. The tourniquet was turned down at 44 minutes. Electrocautery was used to obtain meticulous hemostasis. The knee was copiously irrigated with steri le saline. Once the cement had fully cured, the insert trial was removed. Any excess cement was rem endy from around the capsule and hardware. Final insert chosen was a 9-mm posterior stabilized articu lar insert, size 3-4. This was locked into position on the tibial tray. Stability of the insert was checked and rechecked and noted to be stable. The knee was copiously irrigated with sterile saline. Extensor mechanism was closed using interrupted #1 Vicryl. The rest of the incisions were closed in a layered fashion using 0 and 2-0 Vicryl. The skin was closed using running 3-0 nylon suture. Steril e Xeroform, 4x4's, and Webril were used to cover the incision. Aleksandar pack and cold wrap were placed ov er this. The patient's anesthesia was reversed without difficulty. She was taken to the PACU in sta ble condition. Intended weightbearing will be weightbearing as tolerated. Intended DVT prophylaxis will be Coumadin with a Lovenox bridge. [id number]/[facility] #: [id number]
[2018-07-11] MEDS ORDERED: Aspirin EC TAB* 325 MG PO SCH (21:00)
--- NOTE | 2018-07-12 03:38 | DS ---
AMENDED REPORT NOW INCLUDES COSIGNER DESIGNATION DISCHARGE SUMMARY: DATE OF ADMISSION: 07/10/18 DATE OF DISCHARGE: 07/11/18 ATTENDING PHYSICIAN: Dr. Stacey Porras.* (DICTATED BY MARIA ESTHER VICTORIA) ADMISSION DIAGNOSIS: Osteoarthritis, left knee. DISCHARGE DIAGNOSIS: Osteoarthritis, left knee. SURGERY PERFORMED: Left total knee arthroplasty. HOSPITAL COURSE: The patient is a 67-year-old female who had increasing pain and decreased activities of daily living due to end-stage osteoarthritis of her left knee joint. The patient failed conservative management and elected to proceed with left total knee arthroplasty. She was taken to the operating room under the care of Dr. Stacey Porras on the date of 07/10/18 for the aforementioned procedure. She tolerated the procedure well and left the operating room in stable condition. Postoperatively, she did very well with her physical therapy and occupational therapy goals, mastering all of her goals on postoperative day #1. Her pain was under excellent control. It was felt she was stable medically and orthopedically for discharge to home in the afternoon of 07/11/18 after her afternoon physical therapy session. CONDITION ON DISCHARGE: The patient is afebrile. Her vital signs are stable. Her left knee dressings were changed. Her incision is benign without drainage or erythema. Her calf is soft and nontender. She has active dorsiflexion of the left ankle. Her sensation and circulation are intact distally. PLAN: Discharge to home, bearing weight as tolerated on the left lower extremity. The patient's Coumadin will be discontinued and she will switch over to Ecotrin 325 mg p.o. twice daily starting on Saturday07/12/18 to continue for 30 days postoperatively. The patient states that she has pain medication, muscle relaxant at home to take. Therefore, no new prescriptions were provided at the time of her discharge. She will follow up as scheduled in the office with Dr. Porras in roughly 10 to 14 days. All questions were answered prior to her discharge today. MARIA ESTHER VICTORIA [id number]/[facility] #: [id number] MTDD
== END 2018-07-11 16:40 | disposition home health service (06) | DRG 470 ==
LOC: AA 10:33 → SSU 18:17
PROVIDERS: ADMIT Orthopaedic Surgery Adult Reconstructive Orthopaedic Surgery; ATTEND Orthopaedic Surgery Adult Reconstructive Orthopaedic Surgery
PROC: 0SRD069 Replacement of Left Knee Joint with Oxidized Zirconium on Polyethylene Synthetic Substitute, Cemented, Open Approach (ICD-10-PCS; principal; 2018-07-10 13:00)
DX: M17.12 Unilateral primary osteoarthritis, left knee (principal); B02.22 Postherpetic trigeminal neuralgia; I45.2 Bifascicular block; I10 Essential (primary) hypertension; F32.9 Major depressive disorder, single episode, unspecified; M35.3 Polymyalgia rheumatica; I34.1 Nonrheumatic mitral (valve) prolapse; Z96.651 Presence of right artificial knee joint; M25.462 Effusion, left knee; E66.9 Obesity, unspecified; J45.909 Unspecified asthma, uncomplicated; I36.1 Nonrheumatic tricuspid (valve) insufficiency; I77.819 Aortic ectasia, unspecified site; D64.9 Anemia, unspecified; M25.762 Osteophyte, left knee; Z68.41 Body mass index [BMI] 40.0-44.9, adult; Z90.49 Acquired absence of other specified parts of digestive tract; Z88.1 Allergy status to other antibiotic agents; Z88.0 Allergy status to penicillin; Z88.5 Allergy status to narcotic agent; Z82.49 Family history of ischemic heart disease and other diseases of the circulatory system; Z87.442 Personal history of urinary calculi; Z83.79 Family history of other diseases of the digestive system; Z83.511 Family history of glaucoma; Z80.3 Family history of malignant neoplasm of breast
CPT/HCPCS: 36415; 80048; 85014; 85018; 85049; 85610; A9270-GY; C1776; G8978-GP-CJ; G8979-GP-CI; G8987-GO-CI; G8988-GO-CI; G8989-GO-CI; J0690; J1100; J1650; J2250; J2704; J2795; J3010

== ENCOUNTER 2019-07-22 11:47 | Day surgery (SDC) | payer MEDICARE ==
[~2019-07-22 11:47] MED LIST changes: +Buffered Lidocaine 1% SYRIN* 1 ML/SYRINGE INTRADERM ONE; +Cyclopentolate 1% OPTH.SOL* 2 ML BTL ONE; +Ketorolac 0.5% OPHTH (NF) 0.5 % 5 ML BTL ONE; +Lidocaine 1% MPF ** 5 ML VIAL ONE; +Lidocaine 2% w/ EPI 1:200,000* 20 ML SDV VIAL ONE; +Neomycin/Polymy/Dex OPTH.SUSP* MAXITROL 0.1% 5 ML ONE; +Phenylephrine OPHTH SOL 2.5%* 2 ML ONE; +Povidone Iodine 5% OPTH* 30 ML BTL ONE; +Proparacaine 0.5% OPHTH.SOL* 15 ML BTL ONE; -Tranexamic Acid 1,000 MG in NS 0.9% 50 ML* (outpatient use) IV SCH; +acetaZOLAMIDE TAB* 250 MG ONE
[2019-07-22] MEDS ORDERED: fentaNYL* 50 MCG/ML 2 ML VIAL (100 MCG VIAL) ONE (13:02)
[2019-07-22] MEDS ORDERED: Midazolam* 1 MG/ML 2 ML VIAL (2 MG) ONE ×2 (13:02→13:25)
[2019-07-22 14:39] VITALS: BP 148/88
--- NOTE | 2019-07-22 19:57 | OP ---
DATE OF OPERATION: 07/22/19 [facility] DATE OF : 50 SURGEON: Keyshawn Maciel M.D. PREOPERATIVE DIAGNOSIS: Cataract, left eye. POSTOPERATIVE DIAGNOSIS: Cataract, left eye. OPERATIVE PROCEDURE: Extracapsular cataract extraction with intraocular lens implant left eye. DESCRIPTION OF PROCEDURE: The patient was brought to the operating room after being given 1/2% Alcaine with epinephrine drops in the preoperative area. The eye was prepped and draped in the usual sterile fashion. Sterile drape and eyelid speculum were placed. Again, topical 1/2% Alcaine with epinephrine was given. A paracentesis incision was made at the 3 o'clock position with the No.75 blade. Clear cornea incision 2.2 x 2.2-mm was created at the 6 o'clock position starting at the anterior limbus using the 2.2-mm keratome. The anterior chamber was irrigated with 0.4 mL of 1% non-preservative intracameral lidocaine and filled with DisCoVisc. A capsulorrhexis was completed using the cystotome and the Utrata forceps. Hydrodissection was performed with balanced salt solution. The lens nucleus was removed with the Phacoemulsification handpiece without incident. Cortex was removed with the irrigation-aspiration handpiece. The capsular bag was re-inflated using DisCoVisc and an [id number] implant was inserted with the shooter. The irrigation-aspiration handpiece was used to remove all residual DisCoVisc. The eye was refilled with balanced salt solution and the wound checked and found to be watertight. Topical Maxitrol drops were given. [id number]/[facility] #: [id number] [facility]
== END 2019-07-22 13:58 | disposition home or self-care (01) ==
LOC: OREAST 11:47
PROVIDERS: ATTEND Specialist
DX: H25.812 Combined forms of age-related cataract, left eye (principal); I10 Essential (primary) hypertension; J45.990 Exercise induced bronchospasm; R01.1 Cardiac murmur, unspecified; K21.9 Gastro-esophageal reflux disease without esophagitis
CPT/HCPCS: A9270-GY; J2250; J3010; V2632

== ENCOUNTER 2019-12-25 11:29 | Day surgery (SDC) | payer MEDICARE ==
[~2019-12-25 11:29] MED LIST changes: +Buffered Lidocaine 1% SYRIN 1 ml INTRADERM ONE; -Buffered Lidocaine 1% SYRIN* 1 ML/SYRINGE INTRADERM ONE; -Cyclopentolate 1% OPTH.SOL* 2 ML BTL ONE; +Famotidine IV 10 MG/ML 2 ml VIAL (20 mg) IV ONE; -Ketorolac 0.5% OPHTH (NF) 0.5 % 5 ML BTL ONE; +Lactated Ringers 1000 ml BAG 1,000 ML IV SCH; -Lidocaine 1% MPF ** 5 ML VIAL ONE; -Lidocaine 2% w/ EPI 1:200,000* 20 ML SDV VIAL ONE; -Neomycin/Polymy/Dex OPTH.SUSP* MAXITROL 0.1% 5 ML ONE; -Phenylephrine OPHTH SOL 2.5%* 2 ML ONE; -Povidone Iodine 5% OPTH* 30 ML BTL ONE; -Proparacaine 0.5% OPHTH.SOL* 15 ML BTL ONE; -acetaZOLAMIDE TAB* 250 MG ONE
[2019-12-25] MEDS ORDERED: Famotidine IV 10 MG/ML 2 ml VIAL (20 mg) ONE (11:55)
[2019-12-25] MEDS ORDERED: Levofloxacin 500 MG IVPREMIX(* 500 MG/100 ML BAG IVPB ONE (11:55)
[2019-12-25] MEDS ORDERED: fentaNYL 100 mcg/2 ml 50 MCG/ML VIAL ONE (13:08)
[2019-12-25] MEDS ORDERED: Dexamethasone IV 4 MG/ML VIAL 1 ml VIAL ONE (13:08)
[2019-12-25] MEDS ORDERED: Midazolam 5 mg/5 ml VIAL 1 mg/ml 5 ml VIAL (5 mg) ONE (13:08)
[2019-12-25] MEDS ORDERED: Lidocaine 2% PF 5 ML VIAL ONE (13:08)
[2019-12-25] MEDS ORDERED: Ondansetron 4 mg VIAL 2 MG/ML 2 ml VIAL ONE (13:08)
[2019-12-25] MEDS ORDERED: Propofol 10 MG/ML 20 ML BTL ONE (13:08)
[2019-12-25] MEDS ORDERED: EPHEDrine (Pressors) 50 MG/ML VIAL ONE (13:56)
[2019-12-25] MEDS ORDERED: Iohexol 180 (CONTRAST) 10 ML SDV IV ONE (13:58)
[2019-12-25] MEDS ORDERED: fentaNYL 100 mcg/2 ml 50 MCG/ML VIAL IV PRN (14:48)
[2019-12-25] MEDS ORDERED: Naloxone 0.4 mg VIAL 0.4 mg/ml 1 ml VIAL IV PRN (14:48)
[2019-12-25] MEDS ORDERED: Ondansetron 4 mg VIAL 2 MG/ML 2 ml VIAL IV PRN (14:48)
[2019-12-25 15:51] VITALS: BP 147/78
== END 2019-12-25 15:56 | disposition home or self-care (01) ==
LOC: OR 11:29
PROVIDERS: ATTEND Urology